=== PATIENT | male | born 1935 | race Caucasian/White ===

== ENCOUNTER 2016-09-02 18:29 | Emergency (ER) | payer MEDICARE, BC ==
[2016-09-02 18:29] VITALS: BMI 197684.9
[2016-09-02 18:43] VITALS: PULSE 76; TEMP 98
[2016-09-02] MEDS ORDERED: Oxycodone/Acetaminophen 5/325 mg Tab PO STA (19:35)
--- NOTE | 2016-09-02 21:34 | ED PDOC ---
Arrival/HPI - General Chief Complaint: Trauma Time Seen by Provider: 09/02/16 19:32 Historian: Patient - History of Present Illness Narrative History of Present Illness (Text): 09/02/16 19:45 Jose Arellano is an 81 year old male, whose past medical history includes hemodialysis, who presents to the emergency department complaining of left shoulder, left arm, and left rib cage pain after a mechanical fall at home two days ago. Patient states that he tripped over something on the floor and landed onto his left side on the edge of the bed. Patient's son is at bedside who confirms story and notes that patient usually ambulates with a walker. Patient has no other complaint at this time. PMD: Dr. Wood Time/Duration: < week (2 days ago) Symptom Onset: Gradual Symptom Course: Unchanged Severity Level: Mild Activities at Onset: Light Context: Home Past Medical History - Provider Review Nursing Documentation Reviewed: Yes - Cardiac Hx Hypertension: Yes - Renal Hx Dialysis: Yes () - Psychiatric Hx Substance Use: No Family/Social History - Physician Review Nursing Documentation Reviewed: Yes Family/Social History: No Known Family HX Smoking Status: Unknown If Ever Smoked Hx Alcohol Use: No Hx Substance Use: No Allergies/Home Meds Allergies/Adverse Reactions: Allergies No Known Allergies Allergy (Verified 09/02/16 18:34) Home Medications: Home Meds Medication Instructions Recorded Confirmed Atorvastatin [Lipitor] 40 mg PO DAILY 09/02/16 09/02/16 Calcium Acetate [Phoslo] 667 mg PO TID 09/02/16 09/02/16 Carvedilol [Coreg] 25 mg PO DAILY 09/02/16 09/02/16 Clopidogrel [Plavix] 75 mg PO DAILY 09/02/16 09/02/16 Pantoprazole [Protonix] 40 mg PO DAILY 09/02/16 09/02/16 Vitamin B Complex/Vit C/Folic 1 tab PO DAILY 09/02/16 09/02/16 [Nephro-Christiano] hydrALAZINE [hydralazine 50 mg PO DAILY 09/02/16 09/02/16 Hydrochloride] Physical Exam - Physical Exam Narrative Physical Exam (Text): - Review of Systems Constitutional: Normal. absent: Fatigue, Weight Change, Fevers Eyes: Normal ENT: Normal Respiratory: Normal absent: SOB, Cough, Sputum Cardiovascular: Left rib cage pain. absent: Palpitations, Syncope Gastrointestinal: Normal absent: Abdominal pain, Diarrhea, Nausea, Vomiting Genitourinary: Normal. absent: Dysuria, Frequency, Hematuria Musculoskeletal: Left shoulder and Left arm pain. absent: Arthralgias, Back Pain , Neck Pain Skin: Normal Neurological: Normal absent: Focal Weakness Endocrine: Normal Hemo/Lymphatic: Normal Psychiatric: Normal - Physical exam Patient appears age appropriate, speaking full sentences without difficulty - Systems Exam Head: Present: Atraumatic, Normocephalic Pupils: Present: PERRL Extraocular Muscles: Present: EOMI Conjunctiva: Present: Normal Mouth: Present: Moist Mucous Membranes Neck: Present: Normal Range of Motion. No: MIDLINE TENDERNESS, Paraspinal Tenderness Respiratory/Chest: Rib point tenderness on left. Present: Clear to Auscultation , Good Air Exchange. No: Respiratory Distress, Accessory Muscle Use, Tachypnic Cardiovascular: Present: Regular Rate and Rhythm, Normal S1, S2, Peripheral Pulses Present. No: Murmurs Abdomen: Present: Normal Bowel Sounds, No: Tenderness, Peritoneal Signs, Rebound, Guarding, Distention Back: Present: Normal Inspection. No: Midline Tenderness, Paraspinal Tenderness Upper Extremity: Left clavicle non tender to palpation. Left shoulder with tenderness to palpation over superior portion with no visual or palpable deformity. Proximal humerus with no visible palpable deformity. Left elbow, wrist, and hand unremarkable. Distal neurovascular fully intact. Lower Extremity: Present: Normal Inspection. No: Edema Neurological: Present: GCS=15, Speech Normal, cranial nerves II through XII fully intact with no cerebellar abnormality, neuro-sensory fully intact. No focal neurological deficits. Skin: Present: Warm, Dry, Normal Color. No: Rashes Lymphatic: Present: OX3, NI, NC Psychiatric: Present: Alert, Oriented x 3, Normal Insight, Normal Concentration Head atraumatic. No nasal bone deformity or tenderness, no facial or jaw pain/ swelling. No neck midline tenderness, thoracic and lumbar spine with no midline tenderness. Pt moving b/l upper and lower extremities without difficulty, 5/5 strength, with full active and passive ROM (Except for left upper extremity). Distal neurovasc fully intact. Abd soft/nt/ng, no hematomas, no peritoneal signs. Neg. pelvic rock. Except for left upper extremity. Vital Signs Reviewed: Yes Vital Signs Temp Pulse Resp BP Pulse Ox 09/02/16 18:42 98.0 F 76 18 123/75 97 Temperature: Afebrile Blood Pressure: Normal Pulse: Regular Respiratory Rate: Normal Appearance: Positive for: Well-Appearing, Non-Toxic, Comfortable Pain Distress: None Mental Status: Positive for: Alert and Oriented X 3 Medical Decision Making ED Course and Treatment: 09/02/16 19:35 Impression: 81 year old male complaining of left shoulder, left arm, and left rib cage pain after a mechanical fall at home two days ago. Differential Diagnosis included but are not limited to: Sprain vs. Strain vs. Fracture Plan: -- Left Clavicle X-ray -- Left Elbow X-ray -- Left Humerus X-ray -- Left Shoulder X-ray -- Left Wrist X-ray -- Percocet -- Reassess and disposition Progress Notes: 09/02/16 22:27 Patient's x-ray showed no acute fracture or dislocations. Interpreted by me. No acute findings on CAT scan of the chest and brain, as per [facility] 09/02/16 23:08 Patient currently no distress, patient is able to ambulate with assistance of his son. Patient's son states that he feels comfortable taking him home with outpatient follow-up. Sling applied. Distal neurovascular intact on reevaluation. had an extensive d/w pt that although xrays are negative for any acute bony abnormality, it is still very important to fu with pmd and ortho specialist for further w/u and testing such as MRI to r/o any ligamentous/tendenous/meniscal injury. Pt verbalized full understanding of above discussion. Pt states he understands to return to the ER right away for new or worsening symptoms or for inability to f/u with PMD or specialist as instructed. Patient states that he fully agrees with and understands discharge instructions. States that he agrees with the plan and disposition. Verbalized and repeated discharge instructions and plan. I have given the patient opportunity to ask any additional questions. - RAD Interpretation Narrative RAD Interpretations (Text): 09/02/16 22:29 CT Scan CHEST W/O CONTRAST Exam Date: 09/02/16 This imaging exam was performed at [facility] EXAM: CT Chest Without Intravenous Contrast CLINICAL HISTORY: 81 years old, male; Injury or trauma; Fall; Initial encounter; Sprain or strain; Injury date: 09/02/2016 TECHNIQUE: Axial computed tomography images of the chest without intravenous contrast. This CT exam was performed using one or more of the following dose reduction techniques: automated exposure control, adjustment of the mA and/or kV according to patient size, and/or use of iterative reconstruction technique. Coronal reformatted images were created and reviewed. EXAM DATE/TIME: 09/02/2016 7:34 PM COMPARISON: There are no prior studies for comparison. FINDINGS: Artifacts: Motion artifact degrades image quality. Lungs and Pleural space: Trachea and main bronchi are patent. There is minimal scarring at the lung apices.There is no pneumothorax. There is no focal consolidation or pulmonary contusion. There are no effusions. Mediastinum: There are postsurgical changes in the mediastinum with surgical clips. There are no pathologically enlarged mediastinal nodes.Regla are not optimally evaluated without contrast material. Esophagus is unremarkable. Heart and Vasculature: Heart size is normal. There is no pericardial effusion. There are coronary calcifications. There is no aortic aneurysm.There are vascular calcifications.Pulmonary vessels are unremarkable. Thyroid: Thyroid is not optimally demonstrated. There may be a left thyroid nodule. Bones/joints: Bony structures are osteopenic.There are degenerative changes in the osseus structures.There are postsurgical changes of median sternotomy. No acute displaced rib fractures are visualized. Soft tissues: unremarkable Upper abdomen: Gallbladder is distended over 10 cm in length. Pancreas is atrophic. Tubes, lines and devices: There is a right jugular catheter with the tip at the caval atrial junction. IMPRESSION: No acute intrathoracic injury, no fracture seen; prior bypass surgery Additional findings as described above. Dictated By: Alexa Doyle MD HEAD W/O CONTRAST Exam Date: 09/02/16 This imaging exam was performed at [facility] EXAM: CT Head Without Intravenous Contrast CLINICAL HISTORY: 81 years old, male; Injury or trauma; Fall; Initial encounter; Concussion / head injury; Without loss of consciousness; Injury date: 09/02/2016 TECHNIQUE: Axial computed tomography images of the head/brain without intravenous contrast. This CT exam was performed using one or more of the following dose reduction techniques: automated exposure control, adjustment of the mA and/or kV according to patient size, and/or use of iterative reconstruction technique. EXAM DATE/TIME: 09/02/2016 7:34 PM COMPARISON: There are no prior studies for comparison. FINDINGS: Brain: There is dilatation of sulci gyri and ventricles. There is no midline shift. There is decreased attenuation in periventricular white matter. There are lacunar infarcts in the basal ganglia, age indeterminate. There are no focal masses. There are no focal hemorrhages. Collins-white differentiation is visualized. Ventricles: See above Bones: Cranial vault is intact. Soft tissues: unremarkable Sinuses: There is no acute sinusitis. Ears and mastoids: Middle ears are unremarkable. Mastoid tips are incompletely pneumatized. There is sclerosis of the right mastoid tip. Orbits: Orbital contents are unremarkable. IMPRESSION: Atrophy and small vessel disease, age indeterminate lacunar infarcts in the basal ganglia; no bleed Dictated By: Alexa Doyle MD Radiology Orders: 09/02/16 19:34 CHEST W/O CONTRAST [CT] Stat HEAD W/O CONTRAST [CT] Stat CLAVICLE LEFT [RAD] Stat ELBOW LEFT 3 VIEWS ROUTINE [RAD] Stat HUMERUS LEFT [RAD] Stat SHOULDER LEFT [RAD] Stat WRIST, LEFT 3 VIEWS [RAD] Stat Whipper Beater: Radiologist - Medication Orders Current Medication Orders: Discontinued Medications Oxycodone/Acetaminophen (Percocet 5/325 Mg Tab) 1 tab PO STAT STA Stop: 09/02/16 19:36 Last Admin: 09/02/16 20:22 Dose: 1 tab - Scribe Statement The provider has reviewed the documentation as recorded by the Jackie Parnell Provider Scribe Attestation: All medical record entries made by the Scribe were at my direction and personally dictated by me. I have reviewed the chart and agree that the record accurately reflects my personal performance of the history, physical exam, medical decision making, and the department course for this patient. I have also personally directed, reviewed, and agree with the discharge instructions and disposition. Disposition/Present on Arrival - Present on Arrival Any Indicators Present on Arrival: No History of DVT/PE: No History of Uncontrolled Diabetes: No Urinary Catheter: No History of Decub. Ulcer: No History Surgical Site Infection Following: None - Disposition Have Diagnosis and Disposition been Completed?: Yes Diagnosis: Fall Disposition: HOME/ ROUTINE Disposition Time: 23:10 Patient Plan: Discharge Condition: GOOD Discharge Instructions (ExitCare): Fall Prevention (ED), Fall Prevention for Older Adults (ED) Additional Instructions: PLEASE RETURN TO THE EMERGENCY DEPARTMENT FOR NEW OR WORSENING SYMPTOMS. RETURN RIGHT AWAY IF YOU CANNOT FOLLOW UP WITH YOUR PRIMARY CARE DOCTOR, CLINIC, OR SPECIALIST IN 1-2 DAYS. Prescriptions: oxyCODONE/Acetaminophen [Percocet 5/325 mg Tab] 1 ea PO BID PRN #10 tab PRN Reason: Pain, Moderate (4-7) Referrals: Sanjeev Wood MD [Primary Care Provider] - Follow up with primary
--- NOTE | 2016-09-02 21:43 | CT ---
EXAM: CT Head Without Intravenous Contrast CLINICAL HISTORY: 81 years old, male; Injury or trauma; Fall; Initial encounter; Concussion / head injury; Without loss of consciousness; Injury date: 09/02/2016 TECHNIQUE: Axial computed tomography images of the head/brain without intravenous contrast. This CT exam was performed using one or more of the following dose reduction techniques: automated exposure control, adjustment of the mA and/or kV according to patient size, and/or use of iterative reconstruction technique. EXAM DATE/TIME: 09/02/2016 7:34 PM COMPARISON: There are no prior studies for comparison. FINDINGS: Brain: There is dilatation of sulci gyri and ventricles. There is no midline shift. There is decreased attenuation in periventricular white matter. There are lacunar infarcts in the basal ganglia, age indeterminate. There are no focal masses. There are no focal hemorrhages. Collins-white differentiation is visualized. Ventricles: See above Bones: Cranial vault is intact. Soft tissues: unremarkable Sinuses: There is no acute sinusitis. Ears and mastoids: Middle ears are unremarkable. Mastoid tips are incompletely pneumatized. There is sclerosis of the right mastoid tip. Orbits: Orbital contents are unremarkable. IMPRESSION: Atrophy and small vessel disease, age indeterminate lacunar infarcts in the basal ganglia; no bleed
--- NOTE | 2016-09-02 21:51 | CT ---
EXAM: CT Chest Without Intravenous Contrast CLINICAL HISTORY: 81 years old, male; Injury or trauma; Fall; Initial encounter; Sprain or strain; Injury date: 09/02/2016 TECHNIQUE: Axial computed tomography images of the chest without intravenous contrast. This CT exam was performed using one or more of the following dose reduction techniques: automated exposure control, adjustment of the mA and/or kV according to patient size, and/or use of iterative reconstruction technique. Coronal reformatted images were created and reviewed. EXAM DATE/TIME: 09/02/2016 7:34 PM COMPARISON: There are no prior studies for comparison. FINDINGS: Artifacts: Motion artifact degrades image quality. Lungs and Pleural space: Trachea and main bronchi are patent. There is minimal scarring at the lung apices.There is no pneumothorax. There is no focal consolidation or pulmonary contusion. There are no effusions. Mediastinum: There are postsurgical changes in the mediastinum with surgical clips. There are no pathologically enlarged mediastinal nodes.Regla are not optimally evaluated without contrast material. Esophagus is unremarkable. Heart and Vasculature: Heart size is normal. There is no pericardial effusion. There are coronary calcifications. There is no aortic aneurysm.There are vascular calcifications.Pulmonary vessels are unremarkable. Thyroid: Thyroid is not optimally demonstrated. There may be a left thyroid nodule. Bones/joints: Bony structures are osteopenic.There are degenerative changes in the osseus structures.There are postsurgical changes of median sternotomy. No acute displaced rib fractures are visualized. Soft tissues: unremarkable Upper abdomen: Gallbladder is distended over 10 cm in length. Pancreas is atrophic. Tubes, lines and devices: There is a right jugular catheter with the tip at the caval atrial junction. IMPRESSION: No acute intrathoracic injury, no fracture seen; prior bypass surgery Additional findings as described above.
[2016-09-02 23:51] VITALS: BP 124/80; RESP 16; O2SAT 98
--- NOTE | 2016-09-03 07:19 | RAD ---
PROCEDURE: Radiographs of the left elbow. HISTORY: fall COMPARISON: No prior. FINDINGS: BONES: No fracture. Posterior olecranon spur -triceps insertional enthesophyte. Minimal anterior coronoid spurring. Tug osseous hypertrophic changes lateral humeral epicondyle Mid shaft radial benign-appearing cortical hypertrophy i -possibly due to tug effects or old trauma JOINTS: Mild osteoarthritis. SOFT TISSUES: Normal. JOINT EFFUSION: None. OTHER FINDINGS: None IMPRESSION: No fracture or dislocation. Spurs/mild osteoarthrosis
--- NOTE | 2016-09-03 07:21 | RAD ---
PROCEDURE: Radiographs of the left clavicle. HISTORY: fall COMPARISON: None. FINDINGS: LEFT CLAVICLE: No fracture or focal lesion. JOINTS: Left acromioclavicular and glenohumeral osteoarthrosis SOFT TISSUES: Grossly unremarkable. OTHER FINDINGS: Benign-appearing partly sclerotic focus projects over glenoid - bone island or benign enchondroma seen on end- are favored considerations. Partly visualized are sternal wires IMPRESSION: No fracture or dislocation. Arthrosis
--- NOTE | 2016-09-03 07:22 | RAD ---
PROCEDURE: Radiographs of the left humerus. HISTORY: fall COMPARISON: None. FINDINGS: BONES: No fracture or focal lesion. SOFT TISSUES: Normal. OTHER FINDINGS: Left acromioclavicular and left glenohumeral and left elbow joint joint osteoarthrosis IMPRESSION: Arthrosis. No fracture or dislocation
--- NOTE | 2016-09-03 07:25 | RAD ---
PROCEDURE: Radiographs of the Left Shoulder HISTORY: fall COMPARISON: No prior. FINDINGS: BONES: No fracture or dislocation. The partly sclerotic focus over the glenoid can be seen with developmental variants, partly sclerotic bone island and a benign enchondroma seen on end. JOINTS: Glenohumeral and acromioclavicular SOFT TISSUES: Normal. OTHER FINDINGS: None. IMPRESSION: Arthrosis. No fracture or dislocation
--- NOTE | 2016-09-03 07:27 | RAD ---
PROCEDURE: Left Wrist Radiographs. HISTORY: fall COMPARISON: None. FINDINGS: BONES: . No fracture. JOINTS: Radial carpal mild carpal-first metacarpal, diffuse metacarpal phalangeal and proximal interphalangeal joint space (portions visualize) narrowing/arthritic changes are noted. No dislocations seen SOFT TISSUES: Radial sided carpal level atherosclerotic vascular calcifications OTHER FINDINGS: None. IMPRESSION: No fracture or dislocation. Arthrosis
== END 2016-09-02 23:15 | disposition home or self-care (01) ==
LOC: ED 18:29
DX: Z03.89 Encounter for observation for other suspected diseases and conditions ruled out (principal); W19.XXXA Unspecified fall, initial encounter; Y92.009 Unspecified place in unspecified non-institutional (private) residence as the place of occurrence of the external cause

== ENCOUNTER 2016-12-06 17:43 | Inpatient (IN) | payer MEDICARE, BC ==
[2016-12-06 18:09] VITALS: BMI 18.8
[2016-12-06] MEDS ORDERED: Vancomycin 1gm in NS 250ml 1 GM/250 ML BAG IVPB STA (18:10)
--- NOTE | 2016-12-06 18:13 | ED PDOC ---
Arrival/HPI <Dewey Gonzalez - Last Filed: 12/06/16 20:13> - General Historian: Patient - History of Present Illness Time/Duration: 24 hours Symptom Onset: Gradual Symptom Course: Worsening Context: Home <Zully Pelaez - Last Filed: 12/06/16 20:52> - General Time Seen by Provider: 12/06/16 17:53 - History of Present Illness Narrative History of Present Illness (Text): 12/06/16 18:09 81 year old male with past medical history of HTN, HLD, DM, ESRD on HD M,W,F, CAD s/p CABG and CVA presents for fevers and chills that began yesterday. Patient states that yesterday he developed chills. He underwent dialysis yesterday and was asked to repeat it today. Patient was sent to ED after dialysis session. Patient denies having any CP, abd pain, N/V/D/C, dysuria, LE pain or swelling. Patient occasionally urinates. Patient does c/o SOB but denies having any coughing. PMH: Dr. Wood Accounts Adjustable Clerk: Dr. Bustillo (Zully Pelaez) Past Medical History - Provider Review Nursing Documentation Reviewed: Yes - Travel History Have you recently traveled outside [place] w/in the past 3 mons?: No If Yes, travel location?: [place] - Infectious Disease Hx of Infectious Diseases: None - Cardiac Hx Hypertension: Yes - Renal Hx Dialysis: Yes () - Psychiatric Hx Substance Use: No - Surgical History Other/Comment: dialysis access - Anesthesia Hx Anesthesia: Yes Hx Anesthesia Reactions: No <Zully Pelaez - Last Filed: 12/06/16 20:52> Family/Social History - Physician Review Nursing Documentation Reviewed: Yes Family/Social History: Unknown Family HX Smoking Status: Unknown If Ever Smoked Hx Alcohol Use: No Hx Substance Use: No <Zully Pelaez - Last Filed: 12/06/16 20:52> Allergies/Home Meds <eDwey Gonzalez - Last Filed: 12/06/16 20:13> <Zully Pelaez - Last Filed: 12/06/16 20:52> Allergies/Adverse Reactions: Allergies No Known Allergies Allergy (Verified 09/02/16 18:34) Home Medications: Home Meds Medication Instructions Recorded Confirmed Atorvastatin [Lipitor] 40 mg PO DAILY 09/02/16 12/06/16 Calcium Acetate [Phoslo] 2 tab PO TID 09/02/16 12/06/16 Carvedilol [Coreg] 25 mg PO DAILY 09/02/16 12/06/16 Clopidogrel [Plavix] 75 mg PO DAILY 09/02/16 12/06/16 Pantoprazole [Protonix] 40 mg PO DAILY 09/02/16 12/06/16 Vitamin B Complex/Vit C/Folic 1 tab PO DAILY 09/02/16 12/06/16 [Nephro-Christiano] hydrALAZINE [hydralazine 50 mg PO DAILY 09/02/16 12/06/16 Hydrochloride] Fidaxomicin [Dificid] 200 mg PO BID 12/06/16 12/06/16 Review of Systems - Review of Systems Constitutional: Fevers Eyes: Normal. absent: Vision Changes, Photophobia ENT: Normal. absent: Sore Throat, Rhinorrhea, Sinus Congestion Respiratory: SOB. absent: Cough, Sputum, Wheezing Cardiovascular: absent: Chest Pain, Edema, Calf Pain, Syncope Gastrointestinal: Normal. absent: Abdominal Pain, Constipation, Diarrhea, Nausea, Vomiting Genitourinary Male: Normal. absent: Dysuria, Frequency, Hematuria Musculoskeletal: Normal. absent: Arthralgias, Back Pain, Neck Pain Skin: Normal. absent: Rash, Pruritis, Skin Lesions Neurological: absent: Headache, Dizziness Endocrine: Normal. absent: Diaphoresis, Polyuria Hemo/Lymphatic: Normal. absent: Adenopathy, Easy Bleeding Psychiatric: Normal. absent: Anxiety, Depression <Karim,Zully - Last Filed: 12/06/16 20:52> Physical Exam Vital Signs Reviewed: Yes Temperature: Febrile Blood Pressure: Hypertensive Pulse: Tachycardic Respiratory Rate: Tachypneic Appearance: Positive for: Ill-Appearing, Uncomfortable Pain Distress: None Mental Status: Positive for: Alert and Oriented X 3 Finger Stick Blood Glucose: 248 - Systems Exam Head: Present: Atraumatic, Normocephalic Extroacular Muscles: Present: EOMI Mouth: Present: Moist Mucous Membranes Respiratory/Chest: Present: Wheezes (diffusely). No: Respiratory Distress, Accessory Muscle Use, Rales, Rhonchi Abdomen: Present: Normal Bowel Sounds. No: Tenderness, Distention, Peritoneal Signs, Guarding Lower Extremity: Present: NORMAL PULSES. No: Edema, CALF TENDERNESS Neurological: Present: GCS=15, Speech Normal Skin: Present: Warm, Dry, Normal Color, Other (port site no erythema, non- tender ). No: Rashes Psychiatric: Present: Alert, Oriented x 3, Normal Insight <Zully Pelaez - Last Filed: 12/06/16 20:52> Vital Signs Temp Pulse Resp BP Pulse Ox 12/06/16 20:36 96 H 18 128/71 100 12/06/16 19:21 110 H 18 125/67 100 12/06/16 19:01 116 H 18 141/73 100 12/06/16 17:58 101.8 F H 138 H 18 173/103 H 97 Medical Decision Making <Dewey Gonzalez - Last Filed: 12/06/16 20:13> - Lab Interpretations I have reviewed the lab results: Yes - RAD Interpretation Sizing Sprayer: ED Physician - EKG Interpretation Interpreted by ED Physician: Yes Type: 12 lead EKG <Zully Pelaez - Last Filed: 12/06/16 20:52> ED Course and Treatment: 12/06/16 18:33 Patient seen and examined with medical clinic manager. On exam, patient is tachypneic , tachycardic, febrile. Oxygen saturations are 100%. He has no obvious skin erythema or lesions. No abdominal pain or chest pain. Some rhonchi noted on exam. Tylenol ordered. I suspect tachycardia secondary to fever, SIRS, likely sepsis. IV antibiotics ordered. Initial blood pressure stable. No chest pain currently. Labs pending. (Dewey Gonzalez) 12/06/16 18:17 81 year old male presents for fevers and chills Will check CBC, CMP, cardiac enzymes, blood and urine cultures, UA, CXR, EKG Patient will be given IV antibiotics and tylenol 12/06/16 20:22 Patient's heart rate and temperature has improved since administration of Tylenol. Will reach out to Dr. Singh for admission for observation . 12/06/16 20:50 Dr. Gonzalez spoke with Dr. Luis Lucas who accepts patient under hospitalists service. (Zully Pelaez) - Lab Interpretations Narrative Lab Interpretation (Text): 12/06/16 20:50 CBC unremarkable. CMP unremarkable Lactic acid normal [facility]) Lab Results: 12/06/16 18:20 12/06/16 18:20 Lab Results 12/06/16 18:38: pCO2 40, pO2 146.0 H, HCO3 25.4, ABG pH 7.41, ABG Total CO2 26.6 , ABG O2 Saturation 97.3, ABG Base Excess 0.7, ABG Potassium 3.0 L, Sodium 140.0 , Chloride 108.0 H, Glucose 205 H, Lactate 1.2, FiO2 32.0, Arterial Blood Potassium 3.0 L 12/06/16 18:30: Urine Color Yellow, Urine Appearance Clear, Urine pH 7.5, Ur Specific [place] 1.020, Urine Protein >=300 H, Urine Glucose (UA) >=1000, Urine Ketones Negative, Urine Blood Small H, Urine Nitrate Negative, Urine Bilirubin Negative, Urine Urobilinogen 0.2, Ur Leukocyte Esterase Negative, Urine RBC 1 - 3, Urine WBC 1 - 3, Ur Epithelial Cells 3 - 4, Amorphous Sediment Rare 12/06/16 18:20: Sodium 140, Chloride 99, Potassium 4.0, Carbon Dioxide 29, Anion Gap 16, BUN 17, Creatinine 3.0 H, Est GFR ( Amer) 24, Est GFR (Non- Af Amer) 20, Random Glucose 230 H, Calcium 8.3 L, Phosphorus 3.5, Magnesium 1.8 , Total Bilirubin 1.1, AST 35, ALT 119 H, Alkaline Phosphatase 142 H, Total Protein 7.7, Albumin 3.6, Globulin 4.1, Albumin/Globulin Ratio 0.9 L 12/06/16 18:20: pO2 28 L, VBG pH 7.31 L, VBG pCO2 60.0, VBG HCO3 30.2 H, VBG Total CO2 32.0 H, VBG O2 Sat (Calc) 58.1, VBG Base Excess 2.4 H, VBG Potassium 4.0, Sodium 139.0, Chloride 100.0, Glucose 237 H, Lactate 2.1, FiO2 21.0, Venous Blood Potassium 4.0 12/06/16 18:20: PT 11.6, INR 1.07, APTT 30.3 12/06/16 18:20: WBC 10.1, RBC 4.42, Hgb 10.1 L, Hct 31.6 L, MCV 71.5 L, MCH 22.9 L, MCHC 32.0, RDW 17.4 H, Plt Count 99 L, Gran % 94.6 H, Lymph % (Auto) 3.8 L, Mchen[place] % (Auto) 1.1, Eos % (Auto) 0.3 L, Baso % (Auto) 0.2, Gran # 9.56 H, Lymph # 0.4 L, [place] # 0.1, Eos # 0.0, Baso # 0.02, Neutrophils % (Manual) 93 H, Lymphocytes % (Manual) 5 L, Monocytes % (Manual) 2, Platelet Evaluation Low, Poikilocytosis (manual Slight, Anisocytosis (manual) Slight - RAD Interpretation Narrative RAD Interpretations (Text): 12/06/16 20:50 CXR small vascular congestion (Zully Pelaez) Radiology Orders: 12/06/16 18:02 CHEST PORTABLE [RAD] Stat - EKG Interpretation EKG Interpretation (Text): 12/06/16 20:25 Sinus tachycardia HR of 139, LVH with repolarization abnormality. Normal axis. (Zully Pelaez) - Medication Orders Current Medication Orders: Acetaminophen (Tylenol 325mg Tab) 975 mg PO ONCE PRN PRN Reason: Fever >100.4 F Stop: 12/06/16 23:59 Last Admin: 12/06/16 18:45 Dose: 975 mg Discontinued Medications Vancomycin HCl (Vancomycin 1gm) 1 gm in 250 mls @ 167 mls/hr IVPB STAT STA PRN Reason: Protocol Stop: 12/06/16 19:39 Last Admin: 12/06/16 18:45 Dose: 167 mls/hr Piperacillin Sod/Tazobactam Sod (Zosyn 4.5 Gm In Ns 100ml) 4.5 gm in 100 mls @ 200 mls/hr IVPB STAT STA PRN Reason: Protocol Stop: 12/06/16 19:02 - PA / GAS METER CHECKER / Resident Statement MD/DO has reviewed & agrees with the documentation as recorded. - Scribe Statement The provider has reviewed the documentation as recorded by the Scribe <Dewey Gonzalez - Last Filed: 12/06/16 20:13> <Zully Pelaez - Last Filed: 12/06/16 20:52> - Scribe Statement Melba Marquez Provider Scribe Attestation: All medical record entries made by the Scribe were at my direction and personally dictated by me. I have reviewed the chart and agree that the record accurately reflects my personal performance of the history, physical exam, medical decision making, and the department course for this patient. I have also personally directed, reviewed, and agree with the discharge instructions and disposition. (Dewey Gonzalez) Disposition/Present on Arrival <Dewey Gonzalez - Last Filed: 12/06/16 20:13> - Present on Arrival Any Indicators Present on Arrival: No History of DVT/PE: No History of Uncontrolled Diabetes: No Urinary Catheter: No History of Decub. Ulcer: No History Surgical Site Infection Following: None - Disposition Have Diagnosis and Disposition been Completed?: Yes Disposition Time: 20:51 Patient Plan: Observation <Zully Pelaez - Last Filed: 12/06/16 20:52> - Disposition Diagnosis: Fever, Rigors Disposition: HOSPITALIZED Patient Problems: Current Active Problems Problem Status Onset Fever Acute Rigors Acute Condition: STABLE Referrals: Neel Patel MD [Primary Care Provider] - Follow up with primary
[2016-12-06] MEDS ORDERED: Piperacill/Tazo 4.5gm in NS 4.5 GM/100 ML BAG IVPB STA (18:33)
[2016-12-06 18:39] LABS: VENOUS BLOOD GAS BASE EXCESS 2.4 mmol/L (0.0-2.0); VENOUS BLOOD PH 7.31 (7.32-7.43)
[2016-12-06 18:41] LABS: ARTERIAL BLOOD GAS HCO3 25.4 mmol/L (21-28); ARTERIAL BLOOD GAS PH 7.41 (7.35-7.45)
[2016-12-06 18:48] LABS: ALB/GLOB RATIO 0.9 (1.1-1.8); BILIRUBIN,TOTAL 1.1 mg/dL (0.2-1.3); CALCIUM 8.3 mg/dL (8.4-10.5); MAGNESIUM 1.8 mg/dL (1.7-2.2); PHOSPHOROUS 3.5 mg/dL (2.5-4.5); TOTAL PROTEIN 7.7 g/dL (5.8-8.3)
[2016-12-06 19:28] LABS: BASO # 0.02 K/mm3 (0.0-2.0); BASO % 0.2 % (0.0-3.0); EOS % 0.3 % (1.5-5.0); GRAN # 9.56 (1.4-6.5); GRAN % 94.6 % (50.0-68.0); HEMATOCRIT 31.6 % (42.0-52.0); LYMPH # 0.4 (1.2-3.4); LYMPH % 3.8 % (22.0-35.0); MEAN CELL VOLUME 71.5 fl (80.0-105.0); MEAN CORPUSCULAR HEMOGLOBIN 22.9 pg (25.0-35.0); MONO # 0.1 (0.1-0.6); MONO % 1.1 % (1.0-6.0); RED CELL DISTRIBUTION WIDTH 17.4 % (11.5-14.5); WHITE BLOOD COUNT 10.1 10^3/ul (4.5-11.0)
[2016-12-06 19:29] LABS: PH,URINE 7.5 (4.7-8.0); URINE BILIRUBIN NEGATIVE (NEGATIVE); URINE BLOOD SMALL (NEGATIVE); URINE GLUCOSE (UA) >=1000 mg/dL (NEGATIVE); URINE KETONE NEGATIVE (NEGATIVE); URINE LEUKOCYTE ESTERASE NEGATIVE Leu/uL (NEGATIVE); URINE PROTEIN >=300 mg/dL (<30 mg/dL); URINE UROBILINOGEN 0.2 E.U./dL (<1 E.U./dL)
[2016-12-06 19:35] LABS: URINE APPEARANCE CLEAR (CLEAR); URINE COLOR YELLOW (YELLOW)
[2016-12-06 20:03] LABS: PLATELET COUNT 99 10^3/uL (120.0-450.0)
[2016-12-06 20:08] LABS: ANISOCYTOSIS SLIGHT; NEUTROPHIL 93 % (50.0-70.0); PLATELET ESTIMATE LOW (NORMAL); POIKILOCYTOSIS SLIGHT
[2016-12-06 20:15] LABS: INR 1.07 (0.93-1.08); PARTIAL THROMBOPLASTIN TIME 30.3 Seconds (23.7-30.8)
[2016-12-06 20:27] LABS: URINE AMORPHOUS SEDIMENT RARE
[2016-12-06 22:01] LABS: VENOUS BLOOD GAS BASE EXCESS 4.3 mmol/L (0.0-2.0); VENOUS BLOOD PH 7.38 (7.32-7.43)
[2016-12-07] MEDS: Piperacillin/Tazobact 3.375 gm 100 ML IVPB SCH ×2 (03:00→09:46)
[2016-12-07] MEDS: FIDAXOMICIN 200 MG PO SCH ×2 (09:44→19:44)
[2016-12-07] MEDS: Multivitamin Vitamin B Complex (Nephro-Vite) Tab PO SCH (09:45)
[2016-12-07] MEDS: Pantoprazole 40 mg EC Tab PO SCH (09:46)
--- NOTE | 2016-12-07 10:25 | RAD ---
HISTORY: Sepsis Patient COMPARISON: No prior. FINDINGS: LUNGS: Patchy opacity at medial right lung base. Possible early infiltrate. Followup advised. No other abnormal opacity elsewhere. PLEURA: No significant pleural effusion identified, no pneumothorax apparent. CARDIOVASCULAR: Status post CABG. Normal heart size. No congestive change. Right tunneled central venous dialysis catheter. OSSEOUS STRUCTURES: No significant abnormalities. VISUALIZED UPPER ABDOMEN: Normal. OTHER FINDINGS: None. IMPRESSION: Patchy opacity at medial right base. Followup to exclude developing pneumonia.
--- NOTE | 2016-12-07 10:57 | CARD ---
APPROVED REPORT EKG Measurement Heart [id number] <Conclusion> Sinus tachycardia with fusion complexes Possible Left atrial enlargement Left ventricular hypertrophy with repolarization abnormality ST T changes infero-lat suggestive of ischemia. Abnormal ECG
[2016-12-07] MEDS ORDERED: Vancomycin 500mg in NS 500 MG/100 ML BAG IVPB STA (11:06)
--- NOTE | 2016-12-07 14:19 | CP.PCM.CON ---
History of Present Illness - History of Present Illness History of Present Illness: RENAL CONSULT NOTE 81 year old male with past medical history of HTN, HLD, DM, ESRD on HD TTS, CAD s/p CABG and CVA is admitted with fever and chills on dialysis. his last hd was on thursday and was sent to er after that for evaluation. he has been in [facility] for 2 months and just returned recently. Review of Systems - Review of Systems All systems: reviewed and no additional remarkable complaints except Past Patient History - Infectious Disease Hx of Infectious Diseases: None - Past Social History Smoking Status: Never Smoked - CARDIAC Hx Hypertension: Yes - RENAL Hx Dialysis: Yes () - MUSCULOSKELETAL/RHEUMATOLOGICAL Hx Falls: Yes - PSYCHIATRIC Hx Substance Use: No - SURGICAL HISTORY Other/Comment: dialysis access - ANESTHESIA Hx Anesthesia: Yes Hx Anesthesia Reactions: No Meds Allergies/Adverse Reactions: Allergies Allergy/AdvReac Type Severity Reaction Status Date / Time No Known Allergies Allergy Verified 09/02/16 18:34 - Medications Medications: Current Medications Atorvastatin Calcium (Lipitor) 40 mg PO DAILY [facility] Last Admin: 12/07/16 09:44 Dose: 40 mg Calcium Acetate (Phoslo) 1,334 mg PO TID [facility] Last Admin: 12/07/16 09:45 Dose: 1,334 mg Carvedilol (Coreg) 25 mg PO DAILY [facility] Last Admin: 12/07/16 09:44 Dose: 25 mg Clopidogrel Bisulfate (Plavix) 75 mg PO DAILY [facility] Last Admin: 12/07/16 09:45 Dose: 75 mg Home Med (Home Med) 1 unit PO BID [facility] Last Admin: 12/07/16 09:44 Dose: Not Given Hydralazine HCl (Apresoline) 50 mg PO DAILY [facility] Last Admin: 12/07/16 09:43 Dose: 50 mg Meropenem 250 mg/ Sodium (Chloride) 100 mls @ 100 mls/hr IVPB Q12H [facility] PRN Reason: Protocol Stop: 12/16/16 10:01 Pantoprazole Sodium (Protonix Ec Tab) 40 mg PO DAILY [facility] Last Admin: 12/07/16 09:46 Dose: 40 mg Vitamin B Complex/Vit C/Folic Acid (Nephro-Christiano) 1 tab PO DAILY [facility] Last Admin: 12/07/16 09:45 Dose: 1 tab Physical Exam - Constitutional Appears: Non-toxic, No Acute Distress - Head Exam Head Exam: NORMAL INSPECTION - Eye Exam Eye Exam: Normal appearance - ENT Exam ENT Exam: Mucous Membranes Moist - Neck Exam Neck exam: Positive for: Normal Inspection - Respiratory Exam Respiratory Exam: NORMAL BREATHING PATTERN Additional comments: right permacath + - Cardiovascular Exam Cardiovascular Exam: +S1, +S2 - GI/Abdominal Exam GI & Abdominal Exam: Soft - Extremities Exam Extremities exam: Positive for: normal inspection - Neurological Exam Neurological exam: Alert, Oriented x3 - Psychiatric Exam Psychiatric exam: Normal Mood Results - Vital Signs Recent Vital Signs: Last Vital Signs Temp 99.3 F 12/07/16 06:00 Pulse 90 12/07/16 09:43 Resp 20 12/07/16 06:00 BP 131/79 12/07/16 09:44 Pulse Ox 100 12/07/16 06:00 - Labs Result Diagrams: 12/06/16 18:20 12/06/16 18:20 Labs: Laboratory Results - last 24 hr 12/06/16 21:57 pO2 38 VBG pH 7.38 VBG pCO2 51.0 VBG HCO3 30.2 H VBG Total CO2 31.8 H VBG O2 Sat (Calc) 78.9 H VBG Base Excess 4.3 H VBG Potassium 3.6 Sodium 139.0 Chloride 103.0 Glucose 169 H Lactate 1.2 FiO2 21.0 Venous Blood Potassium 3.6 Assessment & Plan - Assessment and Plan (Free Text) Assessment: esrd/htn/cad/fever? rule out sepsis hd tts, last hd was on thursday continue per schedule lytes reviewed anemia stable continue binders fever work up per primary team, ? line infection. will await cultures results
[2016-12-08] MEDS: Pantoprazole 40 mg EC Tab PO SCH (12:46)
[2016-12-08] MEDS: Multivitamin Vitamin B Complex (Nephro-Vite) Tab PO SCH (12:46)
[2016-12-08] MEDS: FIDAXOMICIN 200 MG PO SCH ×2 (12:47→17:39)
--- NOTE | 2016-12-08 13:48 | CON ---
DATE: 12/07/2016 The patient seen in room 377, bed 1. CHIEF COMPLAINT: Fever of 101 x1 day. HISTORY OF PRESENT ILLNESS: This is an 81-year-old male with a history of hypertension, diabetes; end-stage renal disease, on hemodialysis, coronary artery disease, history of coronary bypass graft, history of cerebrovascular accident, and he developed fevers and chills. The patient admitted now and found to have fever of 101. Infectious Disease consultation requested. The patient denies any chest pain, shortness of breath, cough, hemoptysis. No abdominal pain, diarrhea, or constipation. No dysuria, frequency. No headaches. PAST MEDICAL HISTORY: Significant for hypertension, diabetes, end-stage renal disease on hemodialysis, coronary artery disease, cerebrovascular accident. PAST SURGICAL HISTORY: Significant for coronary bypass graft. ALLERGIES: THE PATIENT HAS NO KNOWN ALLERGIES. MEDICATIONS: At home include hydralazine, Plavix, Coreg, Lipitor. PHYSICAL EXAMINATION: GENERAL: He is in bed, in no acute distress. VITAL SIGNS: Temperature of 101.8, pulse of 100, respiratory rate of 20, blood pressure is 130/70. HEENT: Unremarkable. NECK: Supple. LUNGS: Decreased breath sounds bibasilar. HEART: Normal S1 and S2. ABDOMEN: Soft and nontender. No organomegaly. No rebound. LABORATORY DATA: Shows white count of 10,000, hemoglobin of 10, platelets of 99. BUN of 17, creatinine of 3.0. Urinalysis is noted. Chest x-ray reveals positive right base infiltrate. EKG shows an QTc of 444. ER note is reviewed, written by . ASSESSMENT AND PLAN: This is an 81-year-old male with hypertension, diabetes, end-stage renal disease on hemodialysis, coronary artery disease, cerebrovascular accident, presented with fever of 101, tachycardia, positive chest x-ray and low platelets. The patient with severe sepsis, right-sided healthcare associated pneumonia, must rule out bacteremia, was given the dose of vancomycin yesterday and Zosyn. Blood cultures, urine cultures were ordered. We will give another dose of vancomycin and meropenem and ordered procalcitonin and sputum and we will make further recommendations the initial results. We will follow closely with you. Paul Perez MD [facility] # [id number]
--- NOTE | 2016-12-08 14:08 | CP.PCM.PN ---
Subjective - Date & Time of Evaluation Date of Evaluation: 12/08/16 Time of Evaluation: 11:20 - Subjective Subjective: No fevers overnight, feeling better, less weak, no nausea, no SOB at rest. Objective - Vital Signs/Intake and Output Vital Signs (last 24 hours): Temp Pulse Resp BP Pulse Ox 97.8 F 81 20 126/80 100 12/08/16 08:58 12/08/16 12:49 12/08/16 08:58 12/08/16 12:49 12/08/16 08:58 Intake and Output: 12/08/16 12/08/16 06:59 18:59 Intake Total 360 Output Total 200 Balance 160 - Medications Medications: Current Medications Atorvastatin Calcium (Lipitor) 40 mg PO DAILY [facility] Last Admin: 12/08/16 12:45 Dose: 40 mg Calcium Acetate (Phoslo) 1,334 mg PO TID [facility] Last Admin: 12/08/16 12:46 Dose: 1,334 mg Carvedilol (Coreg) 25 mg PO DAILY [facility] Last Admin: 12/08/16 12:49 Dose: 25 mg Clopidogrel Bisulfate (Plavix) 75 mg PO DAILY [facility] Last Admin: 12/08/16 12:45 Dose: 75 mg Home Med (Home Med) 1 unit PO BID [facility] Last Admin: 12/08/16 12:47 Dose: Not Given Hydralazine HCl (Apresoline) 50 mg PO DAILY [facility] Last Admin: 12/08/16 12:46 Dose: 50 mg Meropenem 250 mg/ Sodium (Chloride) 100 mls @ 100 mls/hr IVPB Q12H [facility] PRN Reason: Protocol Stop: 12/16/16 10:01 Last Admin: 12/08/16 00:03 Dose: 100 mls/hr Doxycycline Hyclate 100 mg/ (Sodium Chloride) 100 mls @ 100 mls/hr IVPB Q12 [facility] PRN Reason: Protocol Stop: 12/15/16 10:01 Last Admin: 12/08/16 12:19 Dose: 100 mls/hr Insulin Detemir (Levemir) 10 unit [facility] Pantoprazole Sodium (Protonix Ec Tab) 40 mg PO DAILY [facility] Last Admin: 12/08/16 12:46 Dose: 40 mg Vitamin B Complex/Vit C/Folic Acid (Nephro-Christiano) 1 tab PO DAILY [facility] Last Admin: 12/08/16 12:46 Dose: 1 tab - Labs Labs: PT 11.6 Seconds (9.9-11.8) 12/06/16 18:20 INR 1.07 (0.93-1.08) 12/06/16 18:20 APTT 30.3 Seconds (23.7-30.8) 12/06/16 18:20 - Constitutional Appears: Non-toxic, No Acute Distress - Head Exam Head Exam: NORMAL INSPECTION - ENT Exam ENT Exam: Mucous Membranes Moist - Neck Exam Neck Exam: absent: Lymphadenopathy, Meningismus - Respiratory Exam Respiratory Exam: Decreased Breath Sounds Additional comments: right anterior chest wall HD catheter site intact - Cardiovascular Exam Cardiovascular Exam: +S1, +S2 - GI/Abdominal Exam GI & Abdominal Exam: Soft. absent: Tenderness Assessment and Plan - Assessment and Plan (Free Text) Plan: Assessment Severe sepsis due to right sided healthcare-associated pneumonia, slowly improving clinically HTN dyslipidemia DM ESRD on HD CAD S/P CABG CVA Plan Continue intermittent Vanco IV, Merrem (Day 2) and will add Doxycycline pending final blood cx results (negative x 1 day) will monitor clinically
--- NOTE | 2016-12-08 14:27 | CP.PCM.PN ---
Subjective - Date & Time of Evaluation Date of Evaluation: 12/08/16 Time of Evaluation: 14:20 - Subjective Subjective: Follow up Nephrology Consultation Note Assessment: Stable RLL pneumonia Diabetic chronic Kidney Disease (E11.22) Hypertensive Chronic Kidney Disease (I12.0) End stage renal disease (N18.6) dependence on hemodialysis (Z99.2) (TTS) via permacath Anemia (D64.9), Hyperphosphatemia (E83.39), Secondary Hyperparathyroidism (E21.1 ), HTN (I12.0) Plan: No acute need for dialysis today. Will plan for dialysis tomorrow. Continue with Nephrovite 1 tab/day. PRBC as needed for anemia. On MARLENE as aransep 25 mcg weekly, last Hb 10.1 Continue with phoslo, last phos level 3.5 Continue with hectorol 1 mcg with dialysis. Last PTH level 384. BP control with meds as ordered. Patient not on RAAS sue. He is known to have labile BP which can drop precipitously during HD Glycemic control, Dialysis consistent diet Further work up/management as per primary team Dose meds/antibiotics for ESRD status. Avoid fleets enema/magnesium based laxatives. speech/swallow eval. appreciate ID input Thanks for allowing me to participate in care of your patient. Will follow patient with you. Please call if any Qs. d/w primary team Dr Robert Prieto Office: [phone] Subjective: Noted events overnight. Patients feels better. Denies chest pain, palpitation, shortness of breath, leg swelling. later developed persistent cough after taking meds Physical Examination: General Appearance: Comfortable, in no acute respiratory distress, co- operative. frail appearing Vitals reviewed and noted as below Lungs: poor respiratory rate/effort. Breath sounds diminished at bases Heart: Normal rate. s1s2 normal. No rub or gallop. Extremities: no edema. hyperpigmented skin in legs Neurological: Patient is alert, awake and oriented to person, place and time. No focal deficit. Strength bilateral appropriate and equal Skin: Warm and dry. Normal turgor. No rash. Palpitation: Normal elasticity for age Abdomen: Abdomen is soft. Bowel sounds +. There is no abdominal tenderness, no guarding/rigidity or organomegaly : kidney or bladder not palpable Access: permacath Labs/imaging reviewed. Past medical history, past surgical history, family history, social history, allergy reviewed work up CXR: RLL infiltrate blood cx neg Objective - Vital Signs/Intake and Output Vital Signs (last 24 hours): Temp Pulse Resp BP Pulse Ox 97.8 F 81 20 126/80 100 12/08/16 08:58 12/08/16 12:49 12/08/16 08:58 12/08/16 12:49 12/08/16 08:58 Intake and Output: 12/08/16 12/08/16 06:59 18:59 Intake Total 360 Output Total 200 Balance 160 - Medications Medications: Current Medications Atorvastatin Calcium (Lipitor) 40 mg PO DAILY [facility] Last Admin: 12/08/16 12:45 Dose: 40 mg Calcium Acetate (Phoslo) 1,334 mg PO TID [facility] Last Admin: 12/08/16 12:46 Dose: 1,334 mg Carvedilol (Coreg) 25 mg PO DAILY [facility] Last Admin: 12/08/16 12:49 Dose: 25 mg Clopidogrel Bisulfate (Plavix) 75 mg PO DAILY [facility] Last Admin: 12/08/16 12:45 Dose: 75 mg Home Med (Home Med) 1 unit PO BID [facility] Last Admin: 12/08/16 12:47 Dose: Not Given Hydralazine HCl (Apresoline) 50 mg PO DAILY [facility] Last Admin: 12/08/16 12:46 Dose: 50 mg Meropenem 250 mg/ Sodium (Chloride) 100 mls @ 100 mls/hr IVPB Q12H [facility] PRN Reason: Protocol Stop: 12/16/16 10:01 Last Admin: 12/08/16 00:03 Dose: 100 mls/hr Doxycycline Hyclate 100 mg/ (Sodium Chloride) 100 mls @ 100 mls/hr IVPB Q12 [facility] PRN Reason: Protocol Stop: 12/15/16 10:01 Last Admin: 12/08/16 12:19 Dose: 100 mls/hr Insulin Detemir (Levemir) 10 unit SC [facility] Pantoprazole Sodium (Protonix Ec Tab) 40 mg PO DAILY [facility] Last Admin: 12/08/16 12:46 Dose: 40 mg Vitamin B Complex/Vit C/Folic Acid (Nephro-Christiano) 1 tab PO DAILY [facility] Last Admin: 12/08/16 12:46 Dose: 1 tab - Labs Labs: PT 11.6 Seconds (9.9-11.8) 12/06/16 18:20 INR 1.07 (0.93-1.08) 12/06/16 18:20 APTT 30.3 Seconds (23.7-30.8) 12/06/16 18:20
--- NOTE | 2016-12-08 21:35 | HP ---
DATE: 12/07/2016 The patient is an 81-year-old male. The patient was seen and examined in his room on 12/07/2016. CHIEF COMPLAINT: Fever and chills. HISTORY OF PRESENT ILLNESS: Mr. Eileen Garcia is an 81-year-old male with past medical history of hypertension, hypercholesterolemia, diabetes mellitus, end-stage renal disease on hemodialysis 3 times a week, coronary artery disease, status post CABG, and CVA, came to the emergency room with fever and chills. The patient went for dialysis and was told to repeat dialysis next day. The patient was sent to ED after dialysis session because of fever. Denies chest pain, abdominal pain, nausea, vomiting, dysuria or swelling of the leg. He is dialysis dependent. Denies shortness of breath, but denies also having coughing or chest pain. PAST MEDICAL HISTORY: Hypertension, renal insufficiency on hemodialysis. FAMILY HISTORY: Father and mother noncontributory. HABITS: No smoking. No drugs. No ethanol. ALLERGIES: THE PATIENT IS NOT ALLERGIC TO ANY MEDICATIONS. HOME MEDICATIONS: Lipitor, PhosLo, Coreg, Plavix, Protonix, hydralazine. Home medications are reviewed by me. REVIEW OF SYSTEMS: The patient seen and examined on the bedside, looking comfortable. No nausea, vomiting, or diarrhea. No hematuria or hematochezia. No headache. No dizziness. PHYSICAL EXAMINATION: VITAL SIGNS: Temperature 99.3, pulse 90, blood pressure 131/79, respiratory rate 20. HEENT: Head normocephalic and atraumatic. Eyes: PERRLA. Extraocular muscles intact. Conjunctivae clear. Nose patent. NECK: Supple. No carotid bruits. No JVD. No thyromegaly. CHEST: Bilaterally symmetrical. HEART: S1 and S2 positive. LUNGS: Clear to auscultation. ABDOMEN: Soft. Bowel sounds are present. No organomegaly. EXTREMITIES: No edema. No cyanosis. NEUROLOGIC: The patient is awake and alert. Moving all 4 extremities. No focal deficit. LABORATORY DATA: White blood cells 10.1, hemoglobin 10.1, hematocrit 31.6 and platelets 99. Sodium 140, potassium 4.0, BUN 17, creatinine 3.0, glucose 230, calcium 8.3, ALT 119, alkaline phosphatase 142. Prolactin 22.26. ASSESSMENT AND PLAN: Mr. Eileen Garcia 81 years old with anemia, thrombocytopenia, renal insufficiency on hemodialysis, uncontrolled diabetes mellitus, hypocalcemia, abnormal liver function test, proteinuria, hematuria, came with fever, history of hypertension, hypercholesterolemia, coronary artery disease, status post coronary artery bypass graft and cerebrovascular accident. We admitted the patient, got consent with Dr. Neel Patel, the patient's candy starch mold printer and Dr. Paul Perez, Infectious Disease. Antibiotic started, culture done, awaiting for the culture. The patient got a dose of vancomycin in the ER. We will continue Protonix, Plavix, and meropenem; started by Dr. Perez. Lipitor for hypercholesterolemia, Coreg and hydralazine. We will follow up. Karla Singh MD DELILAH
[2016-12-08] MEDS: Insulin Detemir 100 units/ml Vial (Levemir) SC SCH (22:11)
--- NOTE | 2016-12-09 00:49 | PN ---
DATE: 12/08/2016 SUBJECTIVE: The patient was examined on 12/08/2016. No fever. Looks comfortable. No nausea, no vomiting, or diarrhea. No hematuria or hematochezia. No chest pain. No shortness of breath. No constipation. PHYSICAL EXAMINATION: VITAL SIGNS: Temperature 97.8, pulse 61, respiration 20, blood pressure 123/80, pulse oximetry is 100%. HEENT: Head is normocephalic, atraumatic. Eyes, PERRLA. Extraocular muscles are intact. Conjunctivae are clear. Nose is patent. Mucous membrane is moist. NECK: Supple. No carotid bruits. No JVD or thyromegaly.. CHEST: Bilateral symmetrical. HEART: S1 and S2 positive. LUNGS: Clear to auscultation. ABDOMEN: Soft. Bowel sounds positive. No organomegaly. EXTREMITIES: No edema and no cyanosis. NEUROLOGICAL: The patient is awake and alert. Moving all 4 extremities. No focal deficit. MEDICATIONS: PhosLo, Coreg, Plavix, hydralazine, meropenem, doxycycline, Levemir, Protonix, vitamins. LABORATORY DATA: I do not have any recent labs, but I reviewed old labs. ASSESSMENT AND PLAN: Mr. Jose Arellano is 81 years old male with severe sepsis due to healthcare associated pneumonia, slowly improving, clinically getting better, hypertension, hypercholesterolemia, diabetes mellitus, end-stage renal disease on hemodialysis three times a week, coronary artery disease, coronary artery bypass surgery, cerebrovascular accident. Continue intermittent vancomycin, IV Merrem day two and we will add doxycycline, pending on final blood culture results as per ID. Seen by Dr. Robert Prieto, analysis director, right lower lobe pneumonia, diabetic chronic kidney disease, hyperphosphatemia secondary to hyperthyroidism. He will go for dialysis tomorrow. Continue Nephro vitamins. Getting Aranesp 25 mcg weekly. Last hemoglobin was 10.1. GI and DVT prophylaxis. Repeat labs. We will follow. Karla Singh MD
[2016-12-09] MEDS ORDERED: Doxercalciferol 4 mcg/2 ml Inj IVP ONE (06:00)
[2016-12-09 06:47] LABS: ALB/GLOB RATIO 0.8 (1.1-1.8); BILIRUBIN,TOTAL 0.5 mg/dL (0.2-1.3); CALCIUM 8.3 mg/dL (8.4-10.5); MAGNESIUM 2.1 mg/dL (1.7-2.2); PHOSPHOROUS 4.7 mg/dL (2.5-4.5); TOTAL PROTEIN 6.8 g/dL (5.8-8.3)
[2016-12-09 06:51] LABS: BASO # 0.03 K/mm3 (0.0-2.0); BASO % 0.5 % (0.0-3.0); EOS # 0.2 (0.0-0.7); EOS % 3.1 % (1.5-5.0); GRAN # 4.12 (1.4-6.5); HEMATOCRIT 28.9 % (42.0-52.0); LYMPH # 1.2 (1.2-3.4); LYMPH % 20.3 % (22.0-35.0); MEAN CELL VOLUME 71.2 fl (80.0-105.0); MEAN CORPUSCULAR HEMOGLOBIN 22.2 pg (25.0-35.0); MEAN CORPUSCULAR HGB CONC 31.1 g/dl (31.0-37.0); MONO # 0.5 (0.1-0.6); MONO % 8.1 % (1.0-6.0); PLATELET COUNT 107 10^3/uL (120.0-450.0); RED CELL DISTRIBUTION WIDTH 17.3 % (11.5-14.5); WHITE BLOOD COUNT 6.1 10^3/ul (4.5-11.0)
--- NOTE | 2016-12-09 10:31 | CP.PCM.PN ---
Subjective - Date & Time of Evaluation Date of Evaluation: 12/09/16 Time of Evaluation: 10:31 - Subjective Subjective: RENAL FOLLOW UP NOTE no events overnight hd today Objective - Vital Signs/Intake and Output Vital Signs (last 24 hours): Temp Pulse Resp BP Pulse Ox 97.5 F L 72 20 130/68 100 12/09/16 00:00 12/09/16 00:00 12/09/16 00:00 12/09/16 00:00 12/09/16 00:00 Intake and Output: 12/09/16 12/09/16 06:59 18:59 Intake Total 480 200 Output Total 0 Balance 480 200 - Medications Medications: Current Medications Atorvastatin Calcium (Lipitor) 40 mg PO DAILY [facility] Last Admin: 12/08/16 12:45 Dose: 40 mg Calcium Acetate (Phoslo) 1,334 mg PO TID [facility] Last Admin: 12/08/16 18:16 Dose: 1,334 mg Carvedilol (Coreg) 25 mg PO DAILY [facility] Last Admin: 12/08/16 12:49 Dose: 25 mg Clopidogrel Bisulfate (Plavix) 75 mg PO DAILY [facility] Last Admin: 12/08/16 12:45 Dose: 75 mg Home Med (Home Med) 1 unit PO BID [facility] Last Admin: 12/08/16 17:39 Dose: Not Given Hydralazine HCl (Apresoline) 50 mg PO DAILY [facility] Last Admin: 12/08/16 12:46 Dose: 50 mg Meropenem 250 mg/ Sodium (Chloride) 100 mls @ 100 mls/hr IVPB Q12H [facility] PRN Reason: Protocol Stop: 12/16/16 10:01 Last Admin: 12/09/16 00:24 Dose: 100 mls/hr Doxycycline Hyclate 100 mg/ (Sodium Chloride) 100 mls @ 100 mls/hr IVPB Q12 [facility] PRN Reason: Protocol Stop: 12/15/16 10:01 Last Admin: 12/08/16 22:10 Dose: 100 mls/hr Insulin Detemir (Levemir) 10 unit SC [facility] Last Admin: 12/08/16 22:11 Dose: 10 unit Pantoprazole Sodium (Protonix Ec Tab) 40 mg PO DAILY [facility] Last Admin: 12/08/16 12:46 Dose: 40 mg Vitamin B Complex/Vit C/Folic Acid (Nephro-Christiano) 1 tab PO DAILY [facility] Last Admin: 12/08/16 12:46 Dose: 1 tab - Labs Labs: 12/09/16 06:25 12/09/16 06:25 PT 11.6 Seconds (9.9-11.8) 12/06/16 18:20 INR 1.07 (0.93-1.08) 12/06/16 18:20 APTT 30.3 Seconds (23.7-30.8) 12/06/16 18:20 - Constitutional Appears: Non-toxic, No Acute Distress - Head Exam Head Exam: NORMAL INSPECTION - Eye Exam Eye Exam: Normal appearance - ENT Exam ENT Exam: Mucous Membranes Moist - Respiratory Exam Respiratory Exam: NORMAL BREATHING PATTERN - Cardiovascular Exam Cardiovascular Exam: +S1, +S2 - GI/Abdominal Exam GI & Abdominal Exam: Soft - Extremities Exam Extremities Exam: Normal Inspection - Neurological Exam Neurological Exam: Alert, Awake - Skin Skin Exam: Dry Assessment and Plan - Assessment and Plan (Free Text) Plan: pnemonia/ESRD/DM/HTN/anemia hd tts today per schedule lytes reviewed b pok abx per primary team anemia: epo with hd continue binders
[2016-12-09] MEDS: Multivitamin Vitamin B Complex (Nephro-Vite) Tab PO SCH (10:40)
[2016-12-09] MEDS: Pantoprazole 40 mg EC Tab PO SCH (10:41)
[2016-12-09] MEDS: FIDAXOMICIN 200 MG PO SCH ×2 (13:12→18:12)
--- NOTE | 2016-12-09 13:37 | CP.PCM.PN ---
Subjective - Date & Time of Evaluation Date of Evaluation: 12/09/16 Time of Evaluation: 10:45 - Subjective Subjective: Breathing better, no cough currently, able to eat breakfast, no fevers overnight , not in distress. Objective - Vital Signs/Intake and Output Vital Signs (last 24 hours): Temp Pulse Resp BP Pulse Ox 97.5 F L 72 20 130/68 100 12/09/16 00:00 12/09/16 00:00 12/09/16 00:00 12/09/16 00:00 12/09/16 00:00 Intake and Output: 12/09/16 12/09/16 06:59 18:59 Intake Total 480 200 Output Total 0 Balance 480 200 - Medications Medications: Current Medications Atorvastatin Calcium (Lipitor) 40 mg PO DAILY [facility] Last Admin: 12/08/16 12:45 Dose: 40 mg Calcium Acetate (Phoslo) 1,334 mg PO TID [facility] Last Admin: 12/08/16 18:16 Dose: 1,334 mg Carvedilol (Coreg) 25 mg PO DAILY [facility] Last Admin: 12/08/16 12:49 Dose: 25 mg Clopidogrel Bisulfate (Plavix) 75 mg PO DAILY [facility] Last Admin: 12/08/16 12:45 Dose: 75 mg Home Med (Home Med) 1 unit PO BID [facility] Last Admin: 12/08/16 17:39 Dose: Not Given Hydralazine HCl (Apresoline) 50 mg PO DAILY [facility] Last Admin: 12/08/16 12:46 Dose: 50 mg Meropenem 250 mg/ Sodium (Chloride) 100 mls @ 100 mls/hr IVPB Q12H [facility] PRN Reason: Protocol Stop: 12/16/16 10:01 Last Admin: 12/09/16 00:24 Dose: 100 mls/hr Doxycycline Hyclate 100 mg/ (Sodium Chloride) 100 mls @ 100 mls/hr IVPB Q12 [facility] PRN Reason: Protocol Stop: 12/15/16 10:01 Last Admin: 12/08/16 22:10 Dose: 100 mls/hr Insulin Detemir (Levemir) 10 unit SC HS [facility] Last Admin: 12/08/16 22:11 Dose: 10 unit Pantoprazole Sodium (Protonix Ec Tab) 40 mg PO DAILY [facility] Last Admin: 12/08/16 12:46 Dose: 40 mg Vitamin B Complex/Vit C/Folic Acid (Nephro-Christiano) 1 tab PO DAILY [facility] Last Admin: 12/08/16 12:46 Dose: 1 tab - Labs Labs: 12/09/16 06:25 12/09/16 06:25 PT 11.6 Seconds (9.9-11.8) 12/06/16 18:20 INR 1.07 (0.93-1.08) 12/06/16 18:20 APTT 30.3 Seconds (23.7-30.8) 12/06/16 18:20 - Constitutional Appears: Non-toxic, No Acute Distress - Head Exam Head Exam: NORMAL INSPECTION - ENT Exam ENT Exam: Mucous Membranes Moist - Neck Exam Neck Exam: absent: Meningismus - Respiratory Exam Respiratory Exam: Decreased Breath Sounds Additional comments: right anterior chest wall HD catheter in place - Cardiovascular Exam Cardiovascular Exam: +S1, +S2 - GI/Abdominal Exam GI & Abdominal Exam: Soft. absent: Tenderness Assessment and Plan - Assessment and Plan (Free Text) Plan: Assessment Severe sepsis due to right sided healthcare-associated pneumonia, slowly improving clinically HTN dyslipidemia DM ESRD on HD CAD S/P CABG CVA Plan Continue intermittent Vanco IV, Merrem (Day 3) and Doxycycline; blood cx are negative; sputum cx showing mixed organisms (will await final results) - target up to 7 days of antibiotics will continue to monitor clinically
[2016-12-09] MEDS: Insulin Detemir 100 units/ml Vial (Levemir) SC SCH (21:47)
--- NOTE | 2016-12-10 02:02 | CON ---
DATE: 12/07/2016 PULMONARY CONSULT REFERRING PHYSICIAN: Dr. Singh. REASON FOR CONSULT: Admitted with fever, chills and daytime sleepy and tired. HISTORY OF PRESENT ILLNESS: This is an 81-year-old gentleman with past medical history significant for diabetes; renal failure, dialysis dependent; hypertension; hyperlipidemia; coronary artery disease; history of coronary bypass surgery and history of stroke came in with fever and chills, admitted to have snoring, daytime sleepy and tired. No nausea, no vomiting and no diarrhea. PAST MEDICAL HISTORY: Renal failure, dialysis dependent; hypertension; coronary artery disease; history of coronary bypass surgery; diabetes and hyperlipidemia. FAMILY HISTORY: Not significant cardiopulmonary disease reported. SOCIAL HISTORY: Nonsmoker and nondrinker. ALLERGIES: NONE KNOWN. MEDICATIONS: He is on hydralazine 50 mg daily, Coreg 25 mg daily, doxycycline 100 mg twice a day, Levemir 10 units subQ at bedtime, Lipitor 40 mg daily, meropenem 250 mg q. 12 hours, Nephro-Christiano 1 tab daily, PhosLo, Plavix 75 mg daily, Protonix 40 mg daily. REVIEW OF SYSTEMS: No headache, no rhinitis. Has some cough, shortness of breath. Admitted to have snoring, daytime sleepy and tired. No nausea, no vomiting. No leg pain or leg swelling. PHYSICAL EXAMINATION GENERAL: Lying in the bed, in no acute distress. VITAL SIGNS: Temp is 98, heart rate 79, respiratory rate is 20, blood pressure 97/49, pulse ox 97% on room air. HEENT: Moist mucous membranes. Crowded airway. Mallampati score is 4. NECK: Supple. No JVD. LUNGS: Has a fair airflow with rhonchi. HEART: S1 and S2. ABDOMEN: Soft, nontender. No organomegaly. EXTREMITIES: There is no edema. NEUROLOGICAL: Awake and alert, just follows simple commands. LABORATORY DATA: Shows hemoglobin 9.7, hematocrit 28.9, WBC is 6.1, platelets are 107. Sodium 141, potassium 4.0, chloride 104, bicarbonate 24, BUN 44, creatinine 6.2, glucose 148, calcium 8.3, phosphorus 4.7, magnesium 2.1, AST 30, ALT 71, alk phos is 94, albumin is 3.0. Microbiology: Blood culture, urine culture and sputum culture, there is no growth. Chest x-ray done on admission, patchy opacity at medial right lung base, possible early infiltrate. IMPRESSION AND PLAN: Admitted with sepsis, probably pneumonia; renal failure, dialysis dependent; hypertension; hyperlipidemia; diabetes; coronary artery disease; history of coronary bypass surgery; history of stroke in the past. The patient is already on broad-spectrum antibiotics covering health care-associated pneumonia, this may be component of sleep apnea. Keep head elevated at 45 degrees. Repeat PA and lateral chest x-ray. Gastric and deep vein thrombosis prophylaxis. Thank you and we will follow with you. Trinidad Day MD
[2016-12-10 08:51] VITALS: RESP 20
--- NOTE | 2016-12-10 09:01 | CP.PCM.PN ---
Subjective - Date & Time of Evaluation Date of Evaluation: 12/10/16 Time of Evaluation: 08:57 - Subjective Subjective: RENAL PROGRESS NOTE seen and examined no complaints Objective - Vital Signs/Intake and Output Vital Signs (last 24 hours): Temp Pulse Resp BP Pulse Ox 98.2 F 102 H 20 137/69 99 12/10/16 07:30 12/10/16 07:30 12/10/16 07:30 12/10/16 07:30 12/10/16 07:30 Intake and Output: 12/10/16 12/10/16 06:59 18:59 Intake Total 180 Output Total 0 Balance 180 - Medications Medications: Current Medications Atorvastatin Calcium (Lipitor) 40 mg PO DAILY [facility] Last Admin: 12/09/16 10:40 Dose: 40 mg Calcium Acetate (Phoslo) 1,334 mg PO TID [facility] Last Admin: 12/09/16 17:38 Dose: 1,334 mg Carvedilol (Coreg) 25 mg PO DAILY [facility] Last Admin: 12/09/16 10:40 Dose: 25 mg Clopidogrel Bisulfate (Plavix) 75 mg PO DAILY [facility] Last Admin: 12/09/16 10:40 Dose: 75 mg Home Med (Home Med) 1 unit PO BID [facility] Last Admin: 12/09/16 18:12 Dose: Not Given Hydralazine HCl (Apresoline) 50 mg PO DAILY [facility] Last Admin: 12/09/16 10:41 Dose: 50 mg Meropenem 250 mg/ Sodium (Chloride) 100 mls @ 100 mls/hr IVPB Q12H [facility] PRN Reason: Protocol Stop: 12/16/16 10:01 Last Admin: 12/10/16 00:16 Dose: 100 mls/hr Doxycycline Hyclate 100 mg/ (Sodium Chloride) 100 mls @ 100 mls/hr IVPB Q12 [facility] PRN Reason: Protocol Stop: 12/15/16 10:01 Last Admin: 12/09/16 21:37 Dose: 100 mls/hr Insulin Detemir (Levemir) 10 unit SC HS [facility] Last Admin: 12/09/16 21:47 Dose: Not Given Pantoprazole Sodium (Protonix Ec Tab) 40 mg PO DAILY [facility] Last Admin: 12/09/16 10:41 Dose: 40 mg Vitamin B Complex/Vit C/Folic Acid (Nephro-Christiano) 1 tab PO DAILY [facility] Last Admin: 12/09/16 10:40 Dose: 1 tab - Labs Labs: 12/09/16 06:25 12/09/16 06:25 PT 11.6 Seconds (9.9-11.8) 12/06/16 18:20 INR 1.07 (0.93-1.08) 12/06/16 18:20 APTT 30.3 Seconds (23.7-30.8) 12/06/16 18:20 - Constitutional Appears: Non-toxic - Head Exam Head Exam: ATRAUMATIC - Eye Exam Eye Exam: Normal appearance - ENT Exam ENT Exam: Normal Exam - Neck Exam Neck Exam: Normal Inspection - Respiratory Exam Respiratory Exam: NORMAL BREATHING PATTERN - Cardiovascular Exam Cardiovascular Exam: REGULAR RHYTHM - GI/Abdominal Exam GI & Abdominal Exam: Normal Bowel Sounds - Extremities Exam Extremities Exam: Normal Inspection - Neurological Exam Neurological Exam: Alert, Oriented x3 - Psychiatric Exam Psychiatric exam: Normal Affect - Skin Skin Exam: Normal Color Assessment and Plan - Assessment and Plan (Free Text) Assessment: pnemonia/ESRD/DM/HTN/anemia/hyperphosphatemia HD tomorrow and continue TTS bp reasonably controlled abx per primary team anemia: aranbesp w/ HD tomorrow continue binders, phos within goal cont nephrocap
--- NOTE | 2016-12-10 09:51 | RAD ---
HISTORY: pneumonia COMPARISON: 12/06/2016 TECHNIQUE: Chest PA and lateral FINDINGS: LUNGS: No active pulmonary disease. PLEURA: Small bilateral pleural effusions CARDIOVASCULAR: Normal. OSSEOUS STRUCTURES: Sternal wires VISUALIZED UPPER ABDOMEN: Normal. OTHER FINDINGS: Right internal jugular dialysis catheter IMPRESSION: Small effusions layered posteriorly
[2016-12-10] MEDS: Pantoprazole 40 mg EC Tab PO SCH (10:07)
[2016-12-10] MEDS: Multivitamin Vitamin B Complex (Nephro-Vite) Tab PO SCH (10:07)
[2016-12-10] MEDS: FIDAXOMICIN 200 MG PO SCH (10:11)
--- NOTE | 2016-12-10 11:55 | PN ---
DATE: 12/09/2016 SUBJECTIVE: The patient was seen and examined on 12/09/2016. Looking comfortable. No nausea, vomiting or diarrhea. No hematuria or hematochezia. No headache. Has some cough and shortness of breath. Sleepy, arousable. No swelling of the leg. PHYSICAL EXAMINATION: VITAL SIGNS: Temperature 98.1, heart rate 79, respirations 20, blood pressure 100/40, pulse oximetry 97% on room air. HEENT: Head; normocephalic, atraumatic. Eyes, PERRLA. Extraocular muscles are intact. Conjunctivae are clear. Nose is patent. Mucous membranes moist. NECK: Supple. No carotid bruits. No thyromegaly. CHEST: Bilaterally symmetrical. HEART: S1 and S2 positive. LUNGS: Has fair air flow with rhonchi. ABDOMEN: Soft. No organomegaly. EXTREMITIES: No edema, no cyanosis. NEUROLOGIC: The patient is sleepy, arousable. Moving all 4 extremities. Follows simple commands. LABORATORY DATA: Hemoglobin 9.7, hematocrit 28.9, WBC is 6.1 and platelets are 107. Sodium 141, potassium 4.0, BUN 44 and creatinine 6.2. MEDICATIONS: Reviewed by me. ASSESSMENT AND PLAN: The patient came with sepsis; pneumonia; renal failure, on hemodialysis; hypertension; hypercholesterolemia; diabetes mellitus; coronary artery disease; history of coronary bypass; history of stroke in the past; getting antibiotics. As per Dr. Day, maybe the patient has sleep apnea components. Repeat x-rays. Gastric and deep venous thrombosis prophylaxis. Appreciate anesthesiology medical doctor and ID input and nephrology help. The patient has dyslipidemia. Continue intermittent vancomycin, IV Merrem day #3 and doxycycline. Blood cultures are negative. Sputum culture is showing mixed organism, we will wait for final result. Target of 7 days of antibiotics. Continue present treatment. We will follow. Karla Singh MD
--- NOTE | 2016-12-10 14:45 | CP.PCM.PN ---
Subjective - Date & Time of Evaluation Date of Evaluation: 12/10/16 Time of Evaluation: 10:40 - Subjective Subjective: Comfortable in bed, not in distress, afebrile, breathing well. Objective - Vital Signs/Intake and Output Vital Signs (last 24 hours): Temp Pulse Resp BP Pulse Ox 97.1 F L 79 18 97/49 L 97 12/09/16 17:00 12/09/16 17:00 12/09/16 17:00 12/09/16 17:00 12/09/16 17:00 Intake and Output: 12/10/16 12/10/16 06:59 18:59 Intake Total 180 Output Total 0 Balance 180 - Medications Medications: Current Medications Atorvastatin Calcium (Lipitor) 40 mg PO DAILY [facility] Last Admin: 12/09/16 10:40 Dose: 40 mg Calcium Acetate (Phoslo) 1,334 mg PO TID [facility] Last Admin: 12/09/16 17:38 Dose: 1,334 mg Carvedilol (Coreg) 25 mg PO DAILY [facility] Last Admin: 12/09/16 10:40 Dose: 25 mg Clopidogrel Bisulfate (Plavix) 75 mg PO DAILY [facility] Last Admin: 12/09/16 10:40 Dose: 75 mg Home Med (Home Med) 1 unit PO BID [facility] Last Admin: 12/09/16 18:12 Dose: Not Given Hydralazine HCl (Apresoline) 50 mg PO DAILY [facility] Last Admin: 12/09/16 10:41 Dose: 50 mg Meropenem 250 mg/ Sodium (Chloride) 100 mls @ 100 mls/hr IVPB Q12H [facility] PRN Reason: Protocol Stop: 12/16/16 10:01 Last Admin: 12/10/16 00:16 Dose: 100 mls/hr Doxycycline Hyclate 100 mg/ (Sodium Chloride) 100 mls @ 100 mls/hr IVPB Q12 [facility] PRN Reason: Protocol Stop: 12/15/16 10:01 Last Admin: 12/09/16 21:37 Dose: 100 mls/hr Insulin Detemir (Levemir) 10 unit SC HS [facility] Last Admin: 12/09/16 21:47 Dose: Not Given Pantoprazole Sodium (Protonix Ec Tab) 40 mg PO DAILY [facility] Last Admin: 12/09/16 10:41 Dose: 40 mg Vitamin B Complex/Vit C/Folic Acid (Nephro-Christiano) 1 tab PO DAILY [facility] Last Admin: 12/09/16 10:40 Dose: 1 tab - Labs Labs: 12/09/16 06:25 12/09/16 06:25 PT 11.6 Seconds (9.9-11.8) 12/06/16 18:20 INR 1.07 (0.93-1.08) 12/06/16 18:20 APTT 30.3 Seconds (23.7-30.8) 12/06/16 18:20 - Constitutional Appears: Non-toxic, No Acute Distress - Head Exam Head Exam: NORMAL INSPECTION - ENT Exam ENT Exam: Mucous Membranes Moist - Neck Exam Neck Exam: absent: Meningismus - Respiratory Exam Respiratory Exam: Decreased Breath Sounds - Cardiovascular Exam Cardiovascular Exam: +S1, +S2 - GI/Abdominal Exam GI & Abdominal Exam: Soft. absent: Tenderness Assessment and Plan - Assessment and Plan (Free Text) Plan: Assessment Severe sepsis due to right sided healthcare-associated pneumonia, clinically improving HTN dyslipidemia DM ESRD on HD CAD S/P CABG CVA Plan Continue Merrem (Day 4) and Doxycycline; blood cx are negative; sputum cx only showing normal oral shanti - target up to 7 days of antibiotics - when ready for discharge, the patient can be switched to PO Levaquin 500 mg every 48 hours to complete the course of therapy will continue to monitor clinically
[2016-12-10 16:18] VITALS: BP 130/67; PULSE 85; TEMP 98; O2SAT 98
--- NOTE | 2016-12-10 20:29 | PN ---
DATE: 12/10/2016 REFERRING PHYSICIAN: Dr. Singh. SUBJECTIVE: He is lying in the bed at 45 degrees. No headache. No dizziness. No nausea. No vomiting. No leg pain or leg swelling. OBJECTIVE: GENERAL: No acute distress. VITAL SIGNS: Temperature is 98, heart rate is 102, respiratory rate is 20, blood pressure 137/69, pulse ox 99% on room air. HEENT: Moist mucous membranes. No oral thrush noted. NECK: Supple. No JVD. LUNGS: Fair airflow with few rhonchi. HEART S1 and S2. ABDOMEN: Soft and nontender. No organomegaly. EXTREMITIES: There is no edema. NEUROLOGIC: Awake, alert and follows simple commands. MEDICATIONS: He is on hydralazine 50 mg daily, Aranesp 40 mcg subcu was given, Coreg 25 mg daily, doxycycline 100 mg twice a day, Levemir 10 units subcu at bedtime, Lipitor 40 mg daily, meropenem 250 mg twice a day, PhosLo 3 times a day, Plavix 75 mg daily, Protonix 40 mg daily. LABORATORY DATA: Shows blood sugar today 198. Chest x-ray repeated yesterday showed small effusion layered posteriorly. IMPRESSION AND PLAN: Resolving sepsis, pleural effusion, normal pulmonary infiltrate, renal failure, dialysis-dependent, hypertension, hyperlipidemia, diabetes, coronary artery disease, history of coronary bypass surgery, history of stroke. Pulmonary point of view, doing okay. Keep head at 45 degrees, bronchodilator, aspiration precaution, gastric prophylaxis, deep vein thrombosis prophylaxis, and physical therapy, out of bed to chair. Thank you and we will follow with you. Trinidad Day MD
[2016-12-11] MEDS ORDERED: Darbepoetin Alfa 40 mcg/ml Inj SC ONE (08:59)
[2016-12-11] MEDS ORDERED: levoFLOXacin 500 MG TAB PO SCH (10:00)
--- NOTE | 2016-12-30 20:44 | DS ---
CHIEF COMPLAINT: Fever and chills. HISTORY OF PRESENT ILLNESS: The patient is an 81 years old male with past medical history of hypertension; hypercholesterolemia; diabetes mellitus; end-stage renal disease, on hemodialysis 3 times a week; coronary artery disease, status post CABG; CVA, came to the emergency room with fever and chills. The patient went for dialysis and was told to repeat dialysis next day. The patient was sent to emergency room after physician because of fever. No abdominal pain. No nausea, vomiting, or diarrhea. We admitted the patient, did chest x-rays, seen by Dr. Day, Dr. Justin Thompson, Dr. Aayush Patel was the patient's it operations specialist, improved, sent back to [facility] for continuity of care and for physical therapy. PAST MEDICAL HISTORY: Hypertension, renal insufficiency, on hemodialysis. FAMILY HISTORY: Father and mother noncontributory. HABITS: No smoking, no drug, no ethanol. ALLERGIES: THE PATIENT IS NOT ALLERGIC WITH ANY MEDICATION. HOME MEDICATIONS: Reviewed by me. REVIEW OF SYSTEMS: The patient seen and examined on the bedside, looking comfortable. No nausea, vomiting, or diarrhea. No hematuria, no hematochezia. No swelling of the legs. No chest pain. No palpitation. No headache. No dizziness. PHYSICAL EXAMINATION: VITAL SIGNS: Temperature 98, heart rate 102, respiratory rate 20, blood pressure 120/80 , pulse oximetry 99% on room air. HEENT: Head normocephalic, atraumatic. Eyes, PERRLA. Extraocular muscles intact. Conjunctiva clear. Nose is patent. Mucous membrane moist. NECK: Supple. No carotid bruits, JVD or thyromegaly. CHEST: Bilaterally symmetrical. HEART: S1 and S2 positive. LUNGS: Clear to auscultation. ABDOMEN: Soft, nontender. No organomegaly. EXTREMITIES: No edema, no cyanosis. NEUROLOGIC: The patient is awake and alert, follows simple commands. MEDICATIONS: Hydralazine, Aranesp, Coreg, doxycycline, Levemir, Lipitor, meropenem, PhosLo, Plavix, Protonix. LABORATORY DATA: White blood cells 6.1, hemoglobin 9.0, hematocrit 28.9, platelets 107. Glucose 108, 198, 136, 148. ASSESSMENT AND PLAN: The patient is an 81 years old male with resolving sepsis; pleural effusion; pulmonary infiltrate; renal insufficiency, on hemodialysis 3 times a week; hypertension; hypercholesterolemia; diabetes mellitus, coronary artery disease, history of coronary bypass surgery; history of stroke, improved, send back to [facility] for continuity of care completing antibiotics and physical therapy. Karla Singh MD MTDKimmie
== END 2016-12-10 18:05 | DRG 871 ==
LOC: ED 17:43 → ERH 20:51 → 3RSO 21:28
PROVIDERS: ADMIT Internal Medicine; ATTEND Internal Medicine
PROC: 5A1D00Z (ICD-10-PCS; principal; 2016-12-09)
DX: A41.9 Sepsis, unspecified organism (principal); J18.9 Pneumonia, unspecified organism; J90 Pleural effusion, not elsewhere classified; N18.6 End stage renal disease; I12.0 Hypertensive chronic kidney disease with stage 5 chronic kidney disease or end stage renal disease; N25.81 Secondary hyperparathyroidism of renal origin; D69.6 Thrombocytopenia, unspecified; E11.22 Type 2 diabetes mellitus with diabetic chronic kidney disease; E11.65 Type 2 diabetes mellitus with hyperglycemia; D64.9 Anemia, unspecified; R65.20 Severe sepsis without septic shock; Y95 Nosocomial condition; Z86.73 Personal history of transient ischemic attack (TIA), and cerebral infarction without residual deficits; E78.5 Hyperlipidemia, unspecified; E05.90 Thyrotoxicosis, unspecified without thyrotoxic crisis or storm; E78.00 Pure hypercholesterolemia, unspecified; E83.39 Other disorders of phosphorus metabolism; E83.51 Hypocalcemia; G47.30 Sleep apnea, unspecified; I25.10 Atherosclerotic heart disease of native coronary artery without angina pectoris; Z79.02 Long term (current) use of antithrombotics/antiplatelets; Z79.899 Other long term (current) drug therapy; Z95.1 Presence of aortocoronary bypass graft; Z99.2 Dependence on renal dialysis

== ENCOUNTER 2016-12-13 17:42 | Inpatient (IN) | payer MEDICARE, BC ==
[2016-12-13] MEDS ORDERED: Piperacillin/Tazobact 3.375 gm 100 ML IVPB STA (17:54)
[2016-12-13] MEDS ORDERED: Vancomycin 1gm in NS 250ml 1 GM/250 ML BAG IVPB STA (17:54)
[2016-12-13] MEDS ORDERED: Sodium Chloride 0.9% 500 ML IV STA (17:55)
--- NOTE | 2016-12-13 18:01 | ED PDOC ---
Arrival/HPI - General Chief Complaint: Fever Time Seen by Provider: 12/13/16 17:44 Historian: Patient - History of Present Illness Narrative History of Present Illness (Text): 12/13/16 17:58 A 81 year old male, whose past medical history includes hypertension, hyperlipidema, and end stage renal disease on dialysis, presents from dialysis with fever from extended stay due to pneumonia. The patient denies any chest pain, headaches, shortness of breath, or any other complaints at this time. The patient admits to making very little urine and received a 3 hour dialysis. Time/Duration: 4-6 hours Symptom Onset: Sudden Symptom Course: Unchanged Activities at Onset: Rest, Light Context: Other Past Medical History - Provider Review Nursing Documentation Reviewed: Yes - Infectious Disease Hx of Infectious Diseases: None - Cardiac Hx Hypertension: Yes - Neurological HX Cerebrovascular Accident: Yes (December 2015) - Renal Hx Dialysis: Yes () - Endocrine/Metabolic Hx Diabetes Mellitus Type 2: Yes - Musculoskeletal/Rheumatological Hx Falls: Yes - Psychiatric Hx Substance Use: No - Surgical History Other/Comment: dialysis access - Anesthesia Hx Anesthesia: Yes Hx Anesthesia Reactions: No Family/Social History - Physician Review Nursing Documentation Reviewed: Yes Family/Social History: No Known Family HX Smoking Status: Never Smoked Hx Alcohol Use: No Hx Substance Use: No Allergies/Home Meds Allergies/Adverse Reactions: Allergies No Known Allergies Allergy (Verified 09/02/16 18:34) Home Medications: Home Meds Medication Instructions Recorded Confirmed Atorvastatin [Lipitor] 40 mg PO DAILY 09/02/16 12/13/16 Calcium Acetate [Phoslo] 2 tab PO TID 09/02/16 12/13/16 Carvedilol [Coreg] 25 mg PO DAILY 09/02/16 12/13/16 Clopidogrel [Plavix] 75 mg PO DAILY 09/02/16 12/13/16 Vitamin B Complex/Vit C/Folic 1 tab PO DAILY 09/02/16 12/13/16 [Nephro-Christiano] hydrALAZINE [Apresoline] 50 mg PO DAILY 09/02/16 12/13/16 Fidaxomicin [Dificid] 200 mg PO BID 12/06/16 12/13/16 Review of Systems - Physician Review All systems were reviewed & negative as marked: Yes - Review of Systems Constitutional: Fevers Respiratory: absent: SOB Cardiovascular: absent: Chest Pain Neurological: absent: Headache Physical Exam Vital Signs Reviewed: Yes Vital Signs Temp Pulse Resp BP Pulse Ox 12/14/16 03:30 78 18 118/62 99 12/13/16 23:05 79 20 100 12/13/16 21:19 98.9 F 85 20 112/53 L 99 12/13/16 20:45 85 14 101/43 L 100 12/13/16 19:46 99.0 F 91 H 18 101/44 L 99 12/13/16 18:59 101 H 19 117/62 100 12/13/16 17:45 102.7 F H Temperature: Febrile Mental Status: Positive for: other - Systems Exam Head: Present: Atraumatic, Normocephalic Pupils: Present: PERRL Extroacular Muscles: Present: EOMI Conjunctiva: Present: Normal Mouth: Present: Moist Mucous Membranes Neck: Present: Normal Range of Motion Respiratory/Chest: Present: Clear to Auscultation, Good Air Exchange. No: Respiratory Distress, Accessory Muscle Use Cardiovascular: Present: Regular Rate and Rhythm, Normal S1, S2. No: Murmurs Abdomen: Present: Normal Bowel Sounds. No: Tenderness, Distention, Peritoneal Signs Back: Present: Normal Inspection Upper Extremity: Present: Normal Inspection. No: Cyanosis, Edema Lower Extremity: Present: Normal Inspection. No: Edema Neurological: Present: GCS=15, CN II-XII Intact, Speech Normal Skin: Present: Warm, Dry, Normal Color. No: Rashes Psychiatric: Present: Alert, Oriented x 3, Normal Insight, Normal Concentration Medical Decision Making ED Course and Treatment: 12/13/16 18:04 Impression: A 81 year old male with fever and body aches. Plan: -- Chest X-ray -- Labs -- IV Fluids, Vancomycin, Zosyn -- Urinalysis -- Reassess and disposition Prior Visits: Notes and results from previous visits were reviewed. The patient was last seen in the emergency department on 12/06/16 for fever. The patient was admitted to the hospital. Progress Notes: 12/13/16 18:09 EKG: Ordered, reviewed, and independently interpreted the EKG. Rate : 113 BPM Rhythm : Sinus tachycardia Interpretation : LVH with V pole abnormality. No ST-segment elevations or depressions, no T-wave inversions, normal intervals. 12/13/16 18:37 Case was discussed with Dr. Patel and he gave the okay for contrast IV. 12/13/16 20:[address], iv line infiltrated during adminstration of iv contrast. ct was done w/o iv contrast 12/13/16 21:30 Reviewed sono, CT Chest, Abdomen, and Pelvis IMPRESSION: Dictated and Authenticated by: Marlyn Maciel MD Bladder wall is significantly thickened, correlate clinically for cystitis and to exclude underlying lesion. Moderate bilateral effusions. Cholelithiasis. Notably distended gallbladder. Please see additional details/findings as above. Some of the above findings warrant followup evaluation. 12/13/16 22:58 US Abdomen IMPRESSION: Dictated and Authenticated by: Marlyn Maciel MD Gallstones and sludge. Distended gallbladder. Gallbladder wall thickness upper limits of normal. Correlate clinically. Followup as warranted. Nuclear hepatobiliary scan may aid in evaluation as warranted. Bilateral pleural effusions. 12/13/16 23:05 Case discussed with surgical services asst application developer manager, who is aware and agrees to evalute pt. 12/13/16 23:[address] Singh, who is aware and agrees with plan. Accepts pt in to her service. Pt will be admitted to Telemetry for cholecystitis, NSTEMI, and sepsis. Request Dr. Brady on consult. - Critical Care Critical Care Minutes: 30 minutes - Lab Interpretations Lab Results: 12/13/16 18:00 12/13/16 18:00 Lab Results 12/13/16 18:50: PT 12.3 H, INR 1.14 H, APTT 42.0 H 12/13/16 18:45: Urine Color Bess, Urine Appearance Clear, Urine pH 6.0, Ur Specific [place] 1.020, Urine Protein >=300 H, Urine Glucose (UA) 250 H, Urine Ketones Negative, Urine Blood Large H, Urine Nitrate Negative, Urine Bilirubin Negative, Urine Urobilinogen 0.2, Ur Leukocyte Esterase Trace H, Urine RBC Tntc , Urine WBC 2 - 5, Ur Epithelial Cells 4 - 5, Urine Bacteria Small 12/13/16 18:25: pO2 47, VBG pH 7.41, VBG pCO2 52.0, VBG HCO3 33.0 H, VBG Total CO2 34.6 H, VBG O2 Sat (Calc) 88.0 H, VBG Base Excess 6.9 H, VBG Potassium 3.6, Glucose 165 H, Lactate 1.5, FiO2 21.0, Sodium 137.0, Chloride 99.0, Venous Blood Potassium 3.6 12/13/16 18:00: Sodium 138, Potassium 4.2, Chloride 97 L, Carbon Dioxide 29, Anion Gap 16, BUN 17, Creatinine 2.5 H, Est GFR ( Amer) 30, Est GFR (Non- Af Amer) 25, Random Glucose 162 H, Calcium 8.8, Magnesium 1.8, Total Bilirubin 0.6, AST 41, ALT 57 H, Alkaline Phosphatase 171 H, Lactate Dehydrogenase 573, Total Creatine Kinase < 20 L, Troponin I 0.26 H*, Total Protein 8.0, Albumin 3.6 , Globulin 4.4, Albumin/Globulin Ratio 0.8 L, Lipase 437 H 12/13/16 18:00: WBC 7.5 D, RBC 4.61, Hgb 10.5 L, Hct 32.3 L, MCV 70.1 L, MCH 22.8 L, MCHC 32.5, RDW 16.9 H, Plt Count 138, Gran % 78.3 H, Lymph % (Auto) 14.1 L, [place] % (Auto) 2.8, Eos % (Auto) 4.1, Baso % (Auto) 0.7, Gran # 5.90, Lymph # 1.1 L, [place] # 0.2, Eos # 0.3, Baso # 0.05 I have reviewed the lab results: Yes - RAD Interpretation Radiology Orders: 12/13/16 17:53 CHEST PORTABLE [RAD] Stat 12/13/16 18:34 CHEST,ABDOMEN, PELVIS W/O CONT [CT] Stat 12/13/16 21:33 ABDOMEN COMPLETE [US] Stat Supply Crib Attendant: ED Physician, Radiologist - EKG Interpretation Interpreted by ED Physician: Yes Type: 12 lead EKG - Medication Orders Current Medication Orders: Atorvastatin Calcium (Lipitor) 40 mg PO DAILY [facility] Last Admin: 12/14/16 11:20 Dose: 40 mg Calcium Acetate (Phoslo) 1,334 mg PO WM [facility] Last Admin: 12/14/16 12:04 Dose: Not Given Non-Admin Reason: NPO Carvedilol (Coreg) 25 mg PO DAILY [facility] Last Admin: 12/14/16 11:20 Dose: 25 mg Clopidogrel Bisulfate (Plavix) 75 mg PO DAILY [facility] Last Admin: 12/14/16 11:20 Dose: 75 mg Home Med (Home Med) 1 unit PO BID [facility] Last Admin: 12/14/16 12:01 Dose: Hydralazine HCl (Apresoline) 50 mg PO DAILY [facility] Last Admin: 12/14/16 11:19 Dose: 50 mg Vitamin B Complex/Vit C/Folic Acid (Nephro-Christiano) 1 tab PO DAILY [facility] Last Admin: 12/14/16 11:20 Dose: 1 tab Discontinued Medications Acetaminophen (Tylenol 325mg Tab) 975 mg PO STAT [facility] Stop: 12/13/16 18:14 Last Admin: 12/13/16 19:00 Dose: 975 mg Aspirin (Aspirin) 325 mg PO STAT [facility] Stop: 12/13/16 23:03 Last Admin: 12/14/16 02:35 Dose: 325 mg Vancomycin HCl (Vancomycin 1gm) 1 gm in 250 mls @ 167 mls/hr IVPB [facility] PRN Reason: Protocol Stop: 12/13/16 19:23 Last Admin: 12/13/16 20:45 Dose: 167 mls/hr Piperacillin Sod/Tazobactam Sod (Zosyn 3.375 In Ns 100ml) 100 mls @ 200 mls/hr IVPB [facility] PRN Reason: Protocol Stop: 12/13/16 18:23 Last Admin: 12/13/16 18:20 Dose: 200 mls/hr Sodium Chloride (Sodium Chloride 0.9%) 500 mls @ 999 mls/hr IV .Q31M [facility] Stop: 12/13/16 18:25 Last Admin: 12/13/16 18:20 Dose: 999 mls/hr Piperacillin Sod/Tazobactam Sod (Zosyn 2.25 Gm In 0.9% 100 Ml) 2.25 gm in 100 mls @ 100 mls/hr IVPB Q6 [facility] PRN Reason: Protocol Stop: 12/14/16 06:59 Last Admin: 12/14/16 06:54 Dose: 100 mls/hr Iodixanol (Visipaque 320 Mg/Ml 100 Ml) Confirm Administered Dose 100 ml IV .STK- MED ONE Stop: 12/13/16 18:46 - Scribe Statement The provider has reviewed the documentation as recorded by the Scribe -- Labs -- Zofran, Protonix, IV Fluids -- Urinalysis Disposition/Present on Arrival - Present on Arrival Any Indicators Present on Arrival: No History of DVT/PE: No History of Uncontrolled Diabetes: No Urinary Catheter: No History of Decub. Ulcer: No History Surgical Site Infection Following: None - Disposition Have Diagnosis and Disposition been Completed?: Yes Diagnosis: Sepsis, NSTEMI (non-ST elevated myocardial infarction), Cholecystitis Disposition: HOSPITALIZED Disposition Time: 11:00 Condition: FAIR
[2016-12-13 18:08] LABS: BASO # 0.05 K/mm3 (0.0-2.0); BASO % 0.7 % (0.0-3.0); EOS # 0.3 (0.0-0.7); EOS % 4.1 % (1.5-5.0); GRAN % 78.3 % (50.0-68.0); HEMATOCRIT 32.3 % (42.0-52.0); LYMPH # 1.1 (1.2-3.4); LYMPH % 14.1 % (22.0-35.0); MEAN CELL VOLUME 70.1 fl (80.0-105.0); MEAN CORPUSCULAR HEMOGLOBIN 22.8 pg (25.0-35.0); MEAN CORPUSCULAR HGB CONC 32.5 g/dl (31.0-37.0); MONO # 0.2 (0.1-0.6); MONO % 2.8 % (1.0-6.0); PLATELET COUNT 138 10^3/uL (120.0-450.0); RED CELL DISTRIBUTION WIDTH 16.9 % (11.5-14.5); WHITE BLOOD COUNT 7.5 10^3/ul (4.5-11.0)
[2016-12-13 18:19] LABS: ALB/GLOB RATIO 0.8 (1.1-1.8); ALKALINE PHOSPHATASE 171 U/L (38-133); ALT/SGPT 57 U/L (7-56); AST/SGOT 41 U/L (15-59); BILIRUBIN,TOTAL 0.6 mg/dL (0.2-1.3); BLOOD UREA NITROGEN 17 mg/dL (7-21); CALCIUM 8.8 mg/dL (8.4-10.5); CARBON DIOXIDE 29 mmol/L (21-33); CHLORIDE 97 mmol/L (98-107); GFR AFRICAN-AMERICAN 30; GLUCOSE,RANDOM 162 mg/dL (70-110); LIPASE 437 U/L (23-300); MAGNESIUM 1.8 mg/dL (1.7-2.2); POTASSIUM 4.2 mmol/L (3.6-5.0); SODIUM 138 mmol/L (132-148)
[2016-12-13 18:34] LABS: TROPONIN I 0.26 ng/mL
[2016-12-13] MEDS ORDERED: Iodixanol 320 MG/ML 100 ML BOTTLE IV ONE (18:45)
[2016-12-13 18:52] LABS: VENOUS BLOOD GAS BASE EXCESS 6.9 mmol/L (0.0-2.0); VENOUS BLOOD PH 7.41 (7.32-7.43)
[2016-12-13 19:08] LABS: INR 1.14 (0.93-1.08)
[2016-12-13 19:30] LABS: URINE BILIRUBIN NEGATIVE (NEGATIVE); URINE BLOOD LARGE (NEGATIVE); URINE GLUCOSE (UA) 250 mg/dL (NEGATIVE); URINE KETONE NEGATIVE (NEGATIVE); URINE LEUKOCYTE ESTERASE TRACE Leu/uL (NEGATIVE); URINE PROTEIN >=300 mg/dL (<30 mg/dL); URINE UROBILINOGEN 0.2 E.U./dL (<1 E.U./dL)
[2016-12-13 19:32] LABS: URINE APPEARANCE CLEAR (CLEAR); URINE COLOR AMBER (YELLOW)
[2016-12-13 19:37] LABS: URINE BACTERIA SMALL (NEG); URINE RBC TNTC /hpf (0-2)
--- NOTE | 2016-12-13 21:32 | CT ---
EXAM: CT Chest, Abdomen and Pelvis Without Intravenous Contrast CLINICAL HISTORY: 81 years old, male; Signs and symptoms; Other: Sepsis; Other: Hypertension TECHNIQUE: Axial computed tomography images of the chest, abdomen and pelvis without intravenous contrast. All CT scans at this facility use one or more dose reduction techniques, viz.: automated exposure control; ma/kV adjustment per patient size (including targeted exams where dose is matched to indication; i.e. head); or iterative reconstruction technique. Coronal and sagittal reformatted images were created and reviewed. COMPARISON: No relevant prior studies available. FINDINGS: Question left thyroid nodule. Atherosclerosis. At the level of the main pulmonary artery, the ascending aorta measures 3.8 cm and descending aorta measures 2.7 cm. Coronary artery calcifications. Shotty mediastinal nodes. Limited evaluation of the blanca without contrast. Moderate bilateral effusions. Atelectasis/scarring. Median sternotomy wires. Postsurgical changes. Surgical clips. Right central catheter tip at cavoatrial junction. No significant pericardial effusion. The unenhanced liver, spleen, right adrenal gland and pancreas demonstrate no acute abnormalities. Prominence of the left adrenal gland, possibly underlying nodule, limited evaluation without contrast. Cholelithiasis. Notably distended gallbladder. No obstructing renal calculus or hydronephrosis. Evaluation of the bowel significantly limited without enteric contrast, especially for underlying inflammation or lesion. No bowel obstruction. Normal caliber appendix. Colonic diverticula. No significant ascites. No free air. Heterogeneous prostate. Bladder wall is significantly thickened, correlate clinically for cystitis and to exclude underlying lesion. Degenerative changes. Nonspecific lytic foci in right iliac bone, uncertain etiology. IMPRESSION: Bladder wall is significantly thickened, correlate clinically for cystitis and to exclude underlying lesion. Moderate bilateral effusions. Cholelithiasis. Notably distended gallbladder. Please see additional details/findings as above. Some of the above findings warrant followup evaluation.
--- NOTE | 2016-12-13 22:58 | US ---
EXAM: US Abdomen Complete CLINICAL HISTORY: 81 years old, male; Pain; Abdominal pain; Generalized; Additional info: Upper abd pain TECHNIQUE: Real-time ultrasound of the abdomen (complete) with image documentation. COMPARISON: CT - CHEST,ABDOMEN,PELVIS W/O CONT 12/13/2016 8:19:42 PM FINDINGS: Liver: Unremarkable as visualized. No intrahepatic bile duct dilation. Gallbladder: Distended gallbladder. Gallstones and sludge noted. Gallbladder wall thickness upper limits of normal measuring approximately 3 mm. Common bile duct: No dilation, measured at 5 mm. Pancreas: Unremarkable as visualized. Kidneys: Right kidney measures 8.5 cm. Left kidney measures 8.4 cm. No hydronephrosis. Spleen: No splenomegaly. Aorta/IVC: Unremarkable as visualized. Bilateral pleural effusions. IMPRESSION: Gallstones and sludge. Distended gallbladder. Gallbladder wall thickness upper limits of normal. Correlate clinically. Followup as warranted. Nuclear hepatobiliary scan may aid in evaluation as warranted. Bilateral pleural effusions.
--- NOTE | 2016-12-13 23:19 | CP.PCM.CON ---
History of Present Illness - History of Present Illness History of Present Illness: General Surgery Dr. Brady 81 y/o M w/ PMHx HTN, CVA, HD, DM2 presents to the ED c/o fever and chills. Pt was discharged on 12/10/16 after resolution of leukocytosis and PNA. Pt is a poor historian, though reports F/C that began after discharge. Pt denies abd pain, N/V, D/C. Pt reports decreased appetite, dysphagia, and 50lb weight loss over the last 3mons. Pt is unsure as to whether he's previously had an EGD or work up for the dysphagia. PMHx: see above Meds: reviewed in chart NKDA PSHx: Permacath SHx: denies tobacco, EtOH, drugs FHx: noncontributory Review of Systems - Review of Systems All systems: reviewed and no additional remarkable complaints except (see HPI) Past Patient History - Infectious Disease Hx of Infectious Diseases: None - Past Social History Smoking Status: Never Smoked - CARDIAC Hx Hypertension: Yes - NEUROLOGICAL HX Cerebrovascular Accident: Yes (December 2015) - RENAL Hx Dialysis: Yes () - ENDOCRINE/METABOLIC Hx Diabetes Mellitus Type 2: Yes - MUSCULOSKELETAL/RHEUMATOLOGICAL Hx Falls: Yes - PSYCHIATRIC Hx Substance Use: No - SURGICAL HISTORY Other/Comment: dialysis access - ANESTHESIA Hx Anesthesia: Yes Hx Anesthesia Reactions: No Meds Allergies/Adverse Reactions: Allergies Allergy/AdvReac Type Severity Reaction Status Date / Time No Known Allergies Allergy Verified 09/02/16 18:34 Physical Exam - Constitutional Appears: Non-toxic, In Acute Distress - Head Exam Head Exam: NORMAL INSPECTION - Eye Exam Eye Exam: Normal appearance - ENT Exam ENT Exam: Mucous Membranes Moist - Respiratory Exam Respiratory Exam: NORMAL BREATHING PATTERN. absent: Accessory Muscle Use, Respiratory Distress - Cardiovascular Exam Cardiovascular Exam: absent: Bradycardia, Tachycardia - GI/Abdominal Exam GI & Abdominal Exam: Soft. absent: Distended, Guarding, Rebound, Tenderness Additional comments: negative Gaona's sign - Extremities Exam Extremities exam: Positive for: normal inspection - Neurological Exam Neurological exam: Alert - Psychiatric Exam Psychiatric exam: Normal Affect, Normal Mood - Skin Skin Exam: Dry, Intact, Normal Color, Warm Results - Vital Signs Recent Vital Signs: Last Vital Signs Temp 98.9 F 12/13/16 21:19 Pulse 79 12/13/16 23:05 Resp 20 08/26/17 23:05 BP 112/53 L 12/13/16 21:19 Pulse Ox 100 12/13/16 23:05 - Labs Result Diagrams: 12/13/16 18:00 12/13/16 18:00 Labs: Laboratory Results - last 24 hr 12/13/16 12/13/16 12/13/16 18:00 18:00 18:25 WBC 7.5 D RBC 4.61 Hgb 10.5 L Hct 32.3 L MCV 70.1 L MCH 22.8 L MCHC 32.5 RDW 16.9 H Plt Count 138 Gran % 78.3 H Lymph % (Auto) 14.1 L [place] % (Auto) 2.8 Eos % (Auto) 4.1 Baso % (Auto) 0.7 Gran # 5.90 Lymph # 1.1 L [place] # 0.2 Eos # 0.3 Baso # 0.05 PT INR APTT pO2 47 VBG pH 7.41 VBG pCO2 52.0 VBG HCO3 33.0 H VBG Total CO2 34.6 H VBG O2 Sat (Calc) 88.0 H VBG Base Excess 6.9 H VBG Potassium 3.6 Glucose 165 H Lactate 1.5 FiO2 21.0 Sodium 138 137.0 Potassium 4.2 Chloride 97 L 99.0 Carbon Dioxide 29 Anion Gap 16 BUN 17 Creatinine 2.5 H Est GFR ( Amer) 30 Est GFR (Non-Af Amer) 25 Random Glucose 162 H Calcium 8.8 Magnesium 1.8 Total Bilirubin 0.6 AST 41 ALT 57 H Alkaline Phosphatase 171 H Lactate Dehydrogenase 573 Total Creatine Kinase < 20 L Troponin I 0.26 H* Total Protein 8.0 Albumin 3.6 Globulin 4.4 Albumin/Globulin Ratio 0.8 L Lipase 437 H Venous Blood Potassium 3.6 Urine Color Urine Appearance Urine pH Ur Specific [place] Urine Protein Urine Glucose (UA) Urine Ketones Urine Blood Urine Nitrate Urine Bilirubin Urine Urobilinogen Ur Leukocyte Esterase Urine RBC Urine WBC Ur Epithelial Cells Urine Bacteria 12/13/16 12/13/16 18:45 18:50 WBC RBC Hgb Hct MCV MCH MCHC RDW Plt Count Gran % Lymph % (Auto) [place] % (Auto) Eos % (Auto) Baso % (Auto) Gran # Lymph # [place] # Eos # Baso # PT 12.3 H INR 1.14 H APTT 42.0 H pO2 VBG pH VBG pCO2 VBG HCO3 VBG Total CO2 VBG O2 Sat (Calc) VBG Base Excess VBG Potassium Glucose Lactate FiO2 Sodium Potassium Chloride Carbon Dioxide Anion Gap BUN Creatinine Est GFR ( Amer) Est GFR (Non-Af Amer) Random Glucose Calcium Magnesium Total Bilirubin AST ALT Alkaline Phosphatase Lactate Dehydrogenase Total Creatine Kinase Troponin I Total Protein Albumin Globulin Albumin/Globulin Ratio Lipase Venous Blood Potassium Urine Color [place] Urine Appearance Clear Urine pH 6.0 Ur Specific [place] 1.020 Urine Protein >=300 H Urine Glucose (UA) 250 H Urine Ketones Negative Urine Blood Large H Urine Nitrate Negative Urine Bilirubin Negative Urine Urobilinogen 0.2 Ur Leukocyte Esterase Trace H Urine RBC Tntc Urine WBC 2 - 5 Ur Epithelial Cells 4 - 5 Urine Bacteria Small - Imaging and Cardiology US - abdomen Status: Image reviewed by me, Report reviewed by me CT scan - abdomen Status: Image reviewed by me, Report reviewed by me Assessment & Plan - Assessment and Plan (Free Text) Assessment: 81 y/o M w/ cholelithiasis - Abd US: cholelithiasis, sludge. no pericholecystic fluid, GB wall thickening, CBD dilation - f/u HIDA r/o acute cholecystitis - cont medical management Will discuss w/ Dr. Jose Antonio Chery DO PGY2
[2016-12-14] MEDS: Piperacillin/Tazobact 2.25gm 2.25 GM/100 ML BAG IVPB SCH ×3 (02:36→23:27)
--- NOTE | 2016-12-14 05:41 | HP ---
CHIEF COMPLAINT: Fever. HISTORY OF PRESENT ILLNESS: Mr. Jose Arellano is an 81-year-old male with a past medical history of hypertension, hypercholesterolemia, end-stage renal disease on hemodialysis, came from dialysis center for fever and chills. The patient denies any chest pain, headache, or shortness of breath. No nausea, vomiting, or diarrhea. Making little urine. Got three hours of dialysis. The patient was recently discharged from [facility] to [facility]. PAST MEDICAL HISTORY: CVA, renal failure on hemodialysis, diabetes mellitus. FAMILY HISTORY: Father and mother noncontributory. HABITS: No smoking. No drug or ethanol. ALLERGIES: THE PATIENT IS NOT ALLERGIC WITH ANY MEDICATIONS. HOME MEDICATIONS: Lipitor, PhosLo, Coreg, Plavix, hydralazine. REVIEW OF SYSTEMS: The patient is examined on the bedside in the ER. Still is feeling feverish, chills. No shortness of breath and no chest pain. No headache or dizziness. PHYSICAL EXAMINATION: VITAL SIGNS: Temperature 98.9, pulse 85, respiratory 20, blood pressure 112/53, pulse oxymetry 100%. HEENT: Head normocephalic and atraumatic. Eyes, PERRLA. Extraocular muscles intact. Conjunctivae are clear. Nose is patent. Mucous membrane moist. NECK: Supple. No carotid bruit. No thyromegaly. CHEST: Bilaterally symmetrical. HEART: S1 and S2 positive. LUNGS: Clear to auscultation. ABDOMEN: Soft. Bowel sounds positive. No organomegaly. EXTREMITIES: No edema. No cyanosis. NEUROLOGIC: The patient is awake and alert. Moving all four extremities. No focal deficits. LABORATORY DATA: White blood cell count 7.5, hemoglobin 10.5, hematocrit 32.3, platelets 138. Sodium 130, potassium 4.2, BUN 70, creatinine 2.7, glucose 162. ASSESSMENT AND PLAN: Mr. Jose Arellano is 81 years old male with anemia, hyperglycemia, hypochloremia, diabetes mellitus uncontrolled and the patient was seen on hemodialysis. Came with fever and chills. Blood culture is done. Antibiotics started. ID consult called. Heparin for hypercholesterolemia. Stage 4 renal disease, on hemodialysis; pneumonia. CAT scan of the chest and abdomen was done. It showed that the abdomen is significantly thickened, correlation clinically for cystitis and exclude anemia, moderate bilateral effusion, cholelithiasis, multiple discharge in the gallbladder, material significant as above. Some of the above findings wanted for lab evaluation. The patient called surgical consult. Discussion done with the ER physician. He was called Dr. Brady then did an ultrasound of the liver. Cardiology consult was called, Dr. Bocanegra for cardiac clearance. Surgeon consulted with Dr. Brady. We will call ID also. We will start some IV antibiotics and IV fluid. GI and DVT prophylaxis. Repeat labs. We will follow up. Karla Singh MD
[2016-12-14 06:24] VITALS: BMI 19.2
[2016-12-14] MEDS: Multivitamin Vitamin B Complex (Nephro-Vite) Tab PO SCH (11:20)
[2016-12-14] MEDS: FIDAXOMICIN 200 MG PO SCH ×2 (12:01→19:09)
--- NOTE | 2016-12-14 13:46 | RAD ---
HISTORY: sepsis COMPARISON: 12/10/2016 FINDINGS: LUNGS: No change right IJ dialysis catheter. Re- demonstrated are mild central pulmonary vascular congestive changes with bilateral effusions left larger than right PLEURA: Mild central pulmonary No significant pleural effusion identified, no pneumothorax apparent. CARDIOVASCULAR: Sternotomy wires and CABG clips again noted. Cardiomegaly. OSSEOUS STRUCTURES: No significant abnormalities. VISUALIZED UPPER ABDOMEN: Normal. OTHER FINDINGS: None. IMPRESSION: Re- demonstrated are mild central pulmonary vascular congestive changes with bilateral effusions left larger than right
--- NOTE | 2016-12-14 19:48 | CP.PCM.CON ---
History of Present Illness - History of Present Illness History of Present Illness: Infectious Disease Consultation: December 14, 2016 81 yo male with recent hospitalization to [facility] for pneumonia and fevers of at least 101.0 F. The patient with complaints of fevers and chills now. States that episodes started shortly after being discharged from the hospital. Fever up 102.7 F on triage in the ER. He was treated with Doxycycline and Meropenem in the hospital for at least a 4 day course. The patient I believe was sent home with Levaquin for treatment. Imaging studies showing a distended gallbladder and cholelithiasis. PMHx: Hypertension, Diabetes Mellitus, ESRD on HD, CAD, CVA, dyslipidemia PSHx: CABG, dialysis access Allergies: NKDA Social Hx: No reported tobacco, EtOH, or illicit drug use. Active Medications Atorvastatin Calcium (Lipitor) 40 mg PO DAILY [facility] Last Admin: 12/14/16 11:20 Dose: 40 mg Calcium Acetate (Phoslo) 1,334 mg PO WM [facility] Last Admin: 12/14/16 19:09 Dose: Not Given Carvedilol (Coreg) 25 mg PO DAILY [facility] Last Admin: 12/14/16 11:20 Dose: 25 mg Clopidogrel Bisulfate (Plavix) 75 mg PO DAILY [facility] Last Admin: 12/14/16 11:20 Dose: 75 mg Home Med (Home Med) 1 unit PO BID [facility] Last Admin: 12/14/16 19:09 Dose: Not Given Hydralazine HCl (Apresoline) 50 mg PO DAILY [facility] Last Admin: 12/14/16 11:19 Dose: 50 mg Piperacillin Sod/Tazobactam Sod (Zosyn 2.25 Gm In 0.9% 100 Ml) 2.25 gm in 100 mls @ 100 mls/hr IVPB Q6 [facility] PRN Reason: Protocol Vitamin B Complex/Vit C/Folic Acid (Nephro-Christiano) 1 tab PO DAILY [facility] Last Admin: 12/14/16 11:20 Dose: 1 tab Family Hx: none given ROS: fevers. No chest pain, abdominal pain, melena, hematuria, hematemesis, hematochezia, depression, anxiety, diarrhea, headaches, dizziness, chest pain. Past Patient History - Infectious Disease Hx of Infectious Diseases: None - Past Social History Smoking Status: Never Smoked - CARDIAC Hx Hypertension: Yes - PULMONARY Hx Respiratory Disorders: Yes Hx Pneumonia: Yes - NEUROLOGICAL HX Cerebrovascular Accident: Yes (December 2015) - HEENT Hx HEENT Problems: Yes - RENAL Hx Dialysis: Yes () - ENDOCRINE/METABOLIC Hx Diabetes Mellitus Type 2: Yes - HEMATOLOGICAL/ONCOLOGICAL Hx Blood Disorders: No - MUSCULOSKELETAL/RHEUMATOLOGICAL Hx Falls: Yes - GASTROINTESTINAL Hx Gastrointestinal Disorders: Yes HX Swallowing Problems: Yes - PSYCHIATRIC Hx Substance Use: No - SURGICAL HISTORY Other/Comment: dialysis access - ANESTHESIA Hx Anesthesia: Yes Hx Anesthesia Reactions: No Meds Allergies/Adverse Reactions: Allergies Allergy/AdvReac Type Severity Reaction Status Date / Time No Known Allergies Allergy Verified 09/02/16 18:34 - Medications Medications: Current Medications Atorvastatin Calcium (Lipitor) 40 mg PO DAILY [facility] Last Admin: 12/14/16 11:20 Dose: 40 mg Calcium Acetate (Phoslo) 1,334 mg PO WM [facility] Last Admin: 12/14/16 19:09 Dose: Not Given Carvedilol (Coreg) 25 mg PO DAILY [facility] Last Admin: 12/14/16 11:20 Dose: 25 mg Clopidogrel Bisulfate (Plavix) 75 mg PO DAILY [facility] Last Admin: 12/14/16 11:20 Dose: 75 mg Home Med (Home Med) 1 unit PO BID [facility] Last Admin: 12/14/16 19:09 Dose: Not Given Hydralazine HCl (Apresoline) 50 mg PO DAILY [facility] Last Admin: 12/14/16 11:19 Dose: 50 mg Piperacillin Sod/Tazobactam Sod (Zosyn 2.25 Gm In 0.9% 100 Ml) 2.25 gm in 100 mls @ 100 mls/hr IVPB Q6 [facility] PRN Reason: Protocol Vitamin B Complex/Vit C/Folic Acid (Nephro-Christiano) 1 tab PO DAILY [facility] Last Admin: 12/14/16 11:20 Dose: 1 tab Physical Exam - Constitutional Appears: Non-toxic, No Acute Distress, Chronically Ill - Head Exam Head Exam: ATRAUMATIC, NORMOCEPHALIC - Eye Exam Eye Exam: EOMI, PERRL Pupil Exam: NORMAL ACCOMODATION, PERRL - ENT Exam ENT Exam: Mucous Membranes Moist, Normal External Ear Exam, TM's Normal Bilaterally - Neck Exam Neck exam: Positive for: Full Rom, Normal Inspection - Respiratory Exam Respiratory Exam: Clear to Auscultation Bilateral, NORMAL BREATHING PATTERN. absent: Rales, Rhonchi, Wheezes - Cardiovascular Exam Cardiovascular Exam: REGULAR RHYTHM, RRR, +S1, +S2 - GI/Abdominal Exam GI & Abdominal Exam: Normal Bowel Sounds, Soft. absent: Distended, Tenderness - Extremities Exam Extremities exam: Positive for: full ROM, normal inspection - Neurological Exam Neurological exam: Alert, CN II-XII Intact, Oriented x3 - Psychiatric Exam Psychiatric exam: Normal Affect, Normal Mood - Skin Skin Exam: Intact, Normal Color Results - Vital Signs Recent Vital Signs: Last Vital Signs Temp 98.4 F 12/14/16 17:40 Pulse 80 12/14/16 18:00 Resp 20 12/14/16 17:40 BP 138/58 L 12/14/16 17:40 Pulse Ox 100 12/14/16 06:00 - Labs Result Diagrams: 12/13/16 18:00 12/13/16 18:00 Labs: Laboratory Results - last 24 hr 12/14/16 17:45 Troponin I 0.10 D Assessment & Plan - Assessment and Plan (Free Text) Assessment: 81 yo male with fevers up to 102.7 F, recent treatment for pneumonia with meropenem and doxycycline discharged on 12/10/2016, and finding of a distended gallbladder and cholelithiasis. Started on Zosyn for antibiotic coverage. On prior hospitalization, no positive cultures. No other recent hospitalizations within the [facility] system. He is an extremely poor historian. Imaging studies showing distended gallbladder. Continuing on Zosyn alone for now. There are still signs of moderate bilateral pleural effusions on the CT scan. Possible HIDA scan to be performed. Surgery currently evaluating at this time.
--- NOTE | 2016-12-14 21:14 | CARD ---
APPROVED REPORT EKG Measurement Heart [id number] <Conclusion> Sinus tachycardia Possible Left atrial enlargement Left ventricular hypertrophy with repolarization abnormality Consider anterior ischemia Abnormal ECG
--- NOTE | 2016-12-14 22:44 | CON ---
DATE: 12/14/2016 HISTORY OF PRESENT ILLNESS: He is seen on the floor with the surgical pathologist and discussed. The patient is an 81-year-old on chronic dialysis through catcher in the right chest, has abdominal pain apparently that is now resolved, 138 pounds and on multiple medications including Apresoline, Coreg, Lipitor, vitamins, Plavix, and aspirin. LABORATORY DATA: Showing a white count of 9, hemoglobin of 10.5. Coags a little bit off. Troponin is elevated at 0.26. ALT at 57. PAST MEDICAL HISTORY: Reviewed. Ultrasound showed some stone slugged with the normal common duct. CAT scan confirms dilated gallbladder, thick walled, but significant evidence of back pressure with bilateral pleural effusions with compressive atelectasis and dilated vena cava and portal venous system. PHYSICAL EXAMINATION: There is no pain. There is no tenderness. No guarding or rebound. This patient is at high risk for any surgical intervention and quite frankly I do not think that this is an acute cholecystitis. We will follow without imminent surgical plans for intervention. Paul Perez MD
--- NOTE | 2016-12-15 00:45 | PN ---
DATE: 12/14/2017 SUBJECTIVE: The patient is seen and examined on the bedside, looking comfortable. was sitting on the bedside also. No nausea, vomiting, or diarrhea. No hematuria, no hematochezia. No headache. No dizziness. No chest pain. No palpitation. PHYSICAL EXAMINATION: VITAL SIGNS: Temperature 98.4, pulse of 79, blood pressure 138/58, respiratory rate 20. HEENT: Head is normocephalic and atraumatic. Eyes; PERRLA. Extraocular muscles intact. Conjunctivae clear. Nose is patent. Mucous membranes moist. NECK: Supple. No carotid bruit, JVD, or thyromegaly. CHEST: Bilaterally symmetrical. HEART: S1 and S2 positive. LUNGS: Clear to auscultation. ABDOMEN: Soft. Bowel sounds positive. No organomegaly. EXTREMITIES: No edema. No cyanosis. NEUROLOGIC: The patient is awake and alert. Moving all 4 extremities. No focal deficit. MEDICATIONS: Hydralazine, Coreg, Lipitor, Nephro Christiano, PhosLo, Plavix, Zosyn. LABORATORY DATA: White blood cells 7.5, hemoglobin 10.5, hematocrit 32.3, and platelets 138. Sodium 138, potassium 4.2, BUN 17, creatinine 2.5 and glucose 162. ASSESSMENT AND PLAN: Mr. Eileen Garcia, an 81 years old male with hypochloremia, renal insufficiency, hyperglycemia, abnormal liver function test. Troponin positive but trending down. Anemia, proteinuria, glycosuria, hematuria, urinary tract infection. Planned for CAT scan of abdomen and pelvis. His bladder wall is significantly thickened, correlate clinically for cystitis and to exclude underlying lesion, moderate bilateral effusions, cholelithiasis, notable is a distended gallbladder, rule out cholecystitis. The patient is approved to go for HIDA scan and because of the weekend, they cannot do that. Gastrointestinal and deep venous thrombosis prophylaxis. Getting antibiotics. Feeling better. Getting Zosyn and also Plavix. Lipitor for hypercholesterolemia. We will followup. Karla Singh MD
--- NOTE | 2016-12-15 04:26 | CON ---
DATE: 12/13/2016 LOCATION: The patient in Room 268, Bed 1. REASON FOR CONSULTATION: The patient has coronary artery disease, history of CABG, and renal failure. HISTORY OF PRESENT ILLNESS: The patient is an 81 year male who has been on dialysis due to renal failure since 12/2015 while having dialysis when he suddenly developed chills. The patient denied any chest pain, shortness of breath, or palpitations associated with that episode. The patient received 3 hours of dialysis. Patient is also known to have hypertension and hypercholesterolemia. The patient had CABG in 1989 and he says that in 12/2015, when he was going on dialysis, he had a cardiac catheterization at [facility]. He was told that his bypasses are open. He follows with Dr. Merchant who is a raw stock machine loader at [facility], he sees him regularly. The patient is also known to have diabetes mellitus since 1989. PAST MEDICAL HISTORY: Positive for CVA, end stage renal failure on dialysis, diabetes mellitus, hypertension, hypercholesterolemia, coronary artery disease status post CABG in 1989, cardiac catheterization in 12/2015 at [facility] by Dr. Merchant and he was told that bypasses are open. PERSONAL HISTORY: Denies smoking, denies drinking. ALLERGIES: THE PATIENT DENIES ANY ALLERGIES. HOME MEDICATIONS: The patient was on hydralazine, Coreg, PhosLo, Plavix, and Lipitor. REVIEW OF SYSTEMS: All the systems are reviewed. Positive mentioned in the history, otherwise negative. PHYSICAL EXAMINATION: VITAL SIGNS: Blood pressure 151/74, repeat blood pressure 130/60, respirations 18, pulse 79, temperature 97.5. HEENT: Head is normocephalic. Eyes, pupils normal. Conjunctiva slightly pale. NECK: JVP low. Carotids equal. THORAX: AP diameter normal. LUNGS: No significant rales. CARDIOVASCULAR: S1, S2. ABDOMEN: Soft, nontender. No organomegaly. Bowel sounds normal. EXTREMITIES: Patient has chronic venous stasis changes, but there is no edema. No clubbing, no cyanosis. LABORATORY DATA: Showed WBC 7.5, hemoglobin 10.5, hematocrit 32.3, platelets 138. Sodium 138, potassium 4.2, BUN 17, creatinine 2.5, AST 41, ALT 57, troponin 0.26. Total protein and albumin normal. DIAGNOSTIC DATA: The patient's chest x ray showed small bilateral pleural effusions. CT of chest, abdomen and pelvis showed bladder wall is significantly thickened, correlates clinically for cystitis, moderate bilateral pleural effusions, cholelithiasis, distended gallbladder, also has patient with questionable thyroid nodule. DIAGNOSES: Sudden onset of chills suggestive of a refractory process, rule out urinary tract infection, rule out cholecystitis, diabetes mellitus, end stage renal failure on dialysis, hypertension, hyperlipidemia, coronary artery disease, status post coronary artery bypass surgery in 12/2015, cardiac catheterization as per patient showed bypasses are open. He sees Dr. Merchant, raw stock machine loader at [facility] regularly. Slightly elevated troponin. PLAN: The patient did not get any chest pain, although he has slightly elevated troponin and it can be false elevation due to renal failure. We will follow the repeat troponin. The patient does not have any chest pain. The patient is seen by surgery. The patient is on hydralazine 50 mg p.o. daily, carvedilol 25 mg p.o. daily, Lipitor 40 mg p.o. daily, Plavix 75 mg daily. The patient has fluid overload with bilateral pleural effusions for which he will need dialysis. We will continue to follow. The patient is being evaluated by surgery. HIDA scan has been ordered already. We will repeat the troponin today and tomorrow morning. We will continue to follow with you. Trinidad Velazquez MD
[2016-12-15] MEDS: Piperacillin/Tazobact 2.25gm 2.25 GM/100 ML BAG IVPB SCH ×3 (05:07→18:44)
--- NOTE | 2016-12-15 07:31 | CON ---
DATE: 12/14/2016 PULMONARY CONSULTATION REFERRING PHYSICIAN: Dr. Singh. REASON FOR CONSULTATION: Status post chills, shortness of breath, end of the dialysis. HISTORY OF PRESENT ILLNESS: This is a 81-year-old gentleman who was recently discharged from the hospital, has multiple medical issues including hypertension, hyperlipidemia, renal failure, dialysis dependent, may have sleep apnea syndrome, history of CVA in the past. Was having dialysis, had fever and chills. No nausea, no vomiting, no chest pain. No leg pain,no leg swelling. PAST MEDICAL HISTORY: Renal failure, dialysis dependent, diabetes, history of stroke, hyperlipidemia, may have sleep apnea syndrome. FAMILY HISTORY: No significant cardiopulmonary disease reported. SOCIAL HISTORY: Nonsmoker, nondrinker. ALLERGIES: NONE KNOWN. MEDICATIONS: He is on hydralazine 50 mg daily, Coreg 25 mg daily, Lipitor 40 mg daily, Nephro-Christiano daily, PhosLo with the meals, Plavix 75 mg daily, Zosyn 2.25 g IV q. 6 hours. REVIEW OF SYSTEMS: Presently, there is no headache, no rhinitis. Has some cough and shortness of breath. No chest pain. No nausea, no vomiting. No diarrhea, leg pain or leg swelling. After dialysis, felt a chill. PHYSICAL EXAMINATION GENERAL: No acute distress. VITAL SIGNS: Temperature is 98, T max yesterday was 102.7, heart rate is 80, respiratory rate is 20, blood pressure 138/58. HEENT: Moist mucous membranes. Crowded airway. Mallampati score is 4. NECK: Supple. No JVD. LUNGS: Has a fair airflow with few rhonchi. HEART: S1 and S2. ABDOMEN: Soft, nontender. No organomegaly. EXTREMITIES: There is no edema. NEUROLOGICAL: Awake, alert, follows simple commands.. LABORATORY DATA: Shows hemoglobin 10.5, hematocrit 32.3, WBC is 7.5, platelets are 138. INR 1.14. PTT 42. VBG showed pH 7.41, pCO2 52, O2 47. Sodium 138, potassium 4.2, chloride 97, bicarbonate 29, BUN 17, creatinine 2.5, glucose 162, calcium 8.8, magnesium 1.8, AST 41, ALT 57, alk phos is 171, troponin is 0.26, albumin is 3.6. Urinalysis shows RBC too numerous to count, WBC 225. Microbiology: Blood culture, so far there is no growth. Had a CAT scan of the abdomen and pelvis done yesterday which shows bladder wall is significantly thickened, correlate clinically, rule out cystitis, moderate bilateral effusion, cholelithiasis, and notably distended gallbladder. IMPRESSION AND PLAN: Sepsis, rule out Lyme sepsis, could be urinary tract infection, hyperlipidemia, diabetes, history of CVA, started on broad spectrum antibiotics, covering Gram negative, Gram positive organisms, keep head 45 degrees, gastric prophylaxis, deep vein thrombosis prophylaxis, aspiration precautions, sleep apnea precaution, out of bed to chair. Followup labs in the morning. Thank you and we will follow with you. Trinidad Day MD
--- NOTE | 2016-12-15 08:02 | CP.PCM.PN ---
Subjective - Date & Time of Evaluation Date of Evaluation: 12/15/16 Time of Evaluation: 07:15 - Subjective Subjective: General Surgery Dr. Brady Pt S&E @bedside. NAEO. denies abd pain, F/C, N/V. tolerating diet. Objective - Vital Signs/Intake and Output Vital Signs (last 24 hours): Temp Pulse Resp BP Pulse Ox 98.3 F 80 20 143/68 100 12/15/16 05:29 12/15/16 05:29 12/15/16 05:29 12/15/16 05:29 12/15/16 05:29 Intake and Output: 12/15/16 12/15/16 06:59 18:59 Intake Total 440 Balance 440 - Medications Medications: Current Medications Atorvastatin Calcium (Lipitor) [address] [facility] Last Admin: 12/14/16 11:20 Dose: 40 mg Calcium Acetate (Phoslo) 1,[address] [facility] Last Admin: 12/14/16 19:09 Dose: Not Given Carvedilol (Coreg) [address] [facility] Last Admin: 12/14/16 11:20 Dose: 25 mg Clopidogrel Bisulfate (Plavix) [address] [facility] Last Admin: 12/14/16 11:20 Dose: 75 mg Home Med (Home Med) [address] [facility] Last Admin: 12/14/16 19:09 Dose: Not Given Hydralazine HCl (Apresoline) [address] [facility] Last Admin: 12/14/16 11:19 Dose: 50 mg Piperacillin Sod/Tazobactam Sod (Zosyn 2.25 Gm In 0.9% 100 Ml) 2.25 gm in 100 mls @ 100 mls/hr IVPB Q6 [facility] PRN Reason: Protocol Last Admin: 12/15/16 05:07 Dose: 100 mls/hr Vitamin B Complex/Vit C/Folic Acid (Nephro-Christiano) [address] [facility] Last Admin: 12/14/16 11:20 Dose: 1 tab - Labs Labs: PT 12.3 Seconds (9.9-11.8) H 12/13/16 18:50 INR 1.14 (0.93-1.08) H 12/13/16 18:50 APTT 42.0 Seconds (23.7-30.8) H 12/13/16 18:50 - Constitutional Appears: Non-toxic, No Acute Distress - Head Exam Head Exam: NORMAL INSPECTION - Eye Exam Eye Exam: Normal appearance - ENT Exam ENT Exam: Mucous Membranes Moist - Respiratory Exam Respiratory Exam: NORMAL BREATHING PATTERN. absent: Accessory Muscle Use, Respiratory Distress - Cardiovascular Exam Cardiovascular Exam: absent: Bradycardia, Tachycardia - GI/Abdominal Exam GI & Abdominal Exam: Soft. absent: Distended, Guarding, Tenderness, Rebound - Extremities Exam Extremities Exam: Normal Inspection - Neurological Exam Neurological Exam: Alert, Awake, Oriented x3 - Psychiatric Exam Psychiatric exam: Normal Affect, Normal Mood - Skin Skin Exam: Dry, Intact, Normal Color, Warm Assessment and Plan - Assessment and Plan (Free Text) Assessment: 81 y/o M w/ cholelithiasis - f/u HIDA - continue medical management Pt discussed w/ Dr. Jose Antonio Chery DO PGY2
[2016-12-15] MEDS ORDERED: Vancomycin 500 mg Inj IVPB SCH (10:15)
[2016-12-15] MEDS ORDERED: Vancomycin 1gm in NS 250ml 1 GM/250 ML BAG IVPB ONE (10:15)
[2016-12-15] MEDS: Multivitamin Vitamin B Complex (Nephro-Vite) Tab PO SCH (10:52)
[2016-12-15] MEDS: FIDAXOMICIN 200 MG PO SCH ×2 (10:53→18:36)
[2016-12-15 11:00] LABS: BASO # 0.09 K/mm3 (0.0-2.0); BASO % 1.2 % (0.0-3.0); EOS # 0.4 (0.0-0.7); EOS % 4.8 % (1.5-5.0); GRAN # 4.34 (1.4-6.5); GRAN % 58.9 % (50.0-68.0); HEMATOCRIT 28.2 % (42.0-52.0); LYMPH # 1.9 (1.2-3.4); LYMPH % 26.1 % (22.0-35.0); MEAN CELL VOLUME 70.9 fl (80.0-105.0); MEAN CORPUSCULAR HEMOGLOBIN 22.9 pg (25.0-35.0); MEAN CORPUSCULAR HGB CONC 32.3 g/dl (31.0-37.0); MONO # 0.7 (0.1-0.6); PLATELET COUNT 157 10^3/uL (120.0-450.0); RED CELL DISTRIBUTION WIDTH 17.2 % (11.5-14.5); WHITE BLOOD COUNT 7.4 10^3/ul (4.5-11.0)
[2016-12-15 11:10] LABS: ALB/GLOB RATIO 0.8 (1.1-1.8); BILIRUBIN,TOTAL 0.5 mg/dL (0.2-1.3); CALCIUM 8.1 mg/dL (8.4-10.5); MAGNESIUM 1.9 mg/dL (1.7-2.2); PHOSPHOROUS 4.8 mg/dL (2.5-4.5); POTASSIUM 3.9 mmol/L (3.6-5.0); TOTAL PROTEIN 6.2 g/dL (5.8-8.3)
--- NOTE | 2016-12-15 13:47 | CP.PCM.CON ---
History of Present Illness - History of Present Illness History of Present Illness: Initial Nephrology Consultation Note Assessment: critical gram + cocci sepsis {presume permacath as source until unless proven otherwise} cholelithiasis, urinary bladder wall thickening, pleural effusions on imaging Diabetic chronic Kidney Disease (E11.22) Hypertensive Chronic Kidney Disease (I12.0) End stage renal disease (N18.6) dependence on hemodialysis (Z99.2) (TTS) via permacath Anemia (D64.9), Hyperphosphatemia (E83.39), Secondary Hyperparathyroidism (E21.1 ), HTN (I12.0) Plan: No acute need for dialysis today. Will plan for dialysis tomorrow. Continue with Nephrovite 1 tab/day. PRBC as needed for anemia. On MARLENE as aransep 25 mcg weekly, last Hb 9.1 Continue with phoslo Continue with hectorol 1 mcg with dialysis. Last PTH level 384. BP control with meds as ordered. Patient not on RAAS sue. He is known to have labile BP which can drop precipitously during HD Glycemic control, Dialysis consistent diet Further work up/management as per primary team Dose meds/antibiotics for ESRD status. Avoid fleets enema/magnesium based laxatives. appreciate ID, surgery input. will also dose with vancomycin today and request IR to change permacath over guidewire. Pt will also benefit from eval for bladder wall thickening seen on CT and also has microscopic hematuria Thanks for allowing me to participate in care of your patient. Will follow patient with you. Please call if any Qs. d/w primary team Dr Robert Prieto Office: [phone] Chief Complaint; sick during dialysis HPI: Pt is a 81 y/o M with hx of ESRD on hemodialysis (TTS) via permacath, last dialysis thursday, chronic anemia, hyperphosphatemia, secondary hyperparathyroidism, Diabetes Mellitus, hypertension presented with complaints of fever and chills during dialysis. he was recent hospitalized with similar complaints and treated for pneumonia and d/c to [facility]. his symptoms recurred last thursday and he was re-admitted with sepsis. also found to have gall stone and urinary bladder wall thickening. He feels better at this time. Denies chest pain, palpitation, shortness of breath, leg swelling ROS: Constitutional Symptoms: had fever/chills during dialysis Eyes: denies change in vision, denies watery eyes, denies double vision Ears/Nose/Mouth/Throat: Denies Abnormal Taste. No Bad breath or Bad Taste. Cardiovascular: No chest pain. There is no shortness of breath. No palpitations. Pulmonary: No shortness of breath or cough. Gastrointestinal: denies abdominal pain at present No nausea. No vomiting. Denies change in bowel habits. Denies Bleeding Genitourinary: makes small urine. No associated pain or blood. Neurological: Denies headaches. No dizziness. Denies loss of balance. Denies weakness, denies tingling/numbness Dermatological: No Rash or Bruising or ulcers. Psychiatric: Denies Anxiety. No depression. Denies hallucinations. Rheumatological: No joint pain. Denies Joint swelling Endocrine: c/o tiredness. c/o Fatigue and denies Heat/Cold Intolerance. All other negative. Physical Examination: General Appearance: Comfortable, in no acute respiratory distress, co-operative . Vitals reviewed and noted as below Head; Atraumatic, normocephalic ENT: no ulcers no thrush. Tongue is midline. Oropharynx: no rash or ulcers. EYES: Pupils are equal, round and reactive to light accommodation. Eye muscles and extraocular movement intact. Sclera is anicteric. Neck; supple no lymphadenopathy, no thyromegaly or bruit Lungs: Normal respiratory rate/effort. Breath sounds bilateral equal and clear but somewhat decreased at bases Heart: Normal rate. s1s2 normal. No rub or gallop. Extremities: no edema. No varicose veins. chronic hyperpigmented changes in legs skin Neurological: Patient is alert, awake and oriented to person, place and time. No focal deficit. Strength bilateral appropriate and equal Skin: Warm and dry. Normal turgor. No rash. Palpitation: Normal elasticity for age Abdomen: Abdomen is soft. Bowel sounds +. There is no abdominal tenderness, no guarding/rigidity or organomegaly Psych: normal insight and normal affect/mood MSK: no joint tenderness or swelling. Digits and nails normal, no deformity : kidney or bladder not palpable Access: permacath, no tunnel tenderness Labs/imaging reviewed. Past medical history, past surgical history, family history, social history, allergy reviewed and noted as below Family Hx: no hx of CKD. Non contributory work up: Blood cx drawn during hD + for GPC urine cx neg Past Patient History - Infectious Disease Hx of Infectious Diseases: None - Past Social History Smoking Status: Never Smoked - CARDIAC Hx Hypertension: Yes - PULMONARY Hx Respiratory Disorders: Yes Hx Pneumonia: Yes - NEUROLOGICAL HX Cerebrovascular Accident: Yes (December 2015) - HEENT Hx HEENT Problems: Yes - RENAL Hx Dialysis: Yes () - ENDOCRINE/METABOLIC Hx Diabetes Mellitus Type 2: Yes - HEMATOLOGICAL/ONCOLOGICAL Hx Blood Disorders: No - MUSCULOSKELETAL/RHEUMATOLOGICAL Hx Falls: Yes - GASTROINTESTINAL Hx Gastrointestinal Disorders: Yes HX Swallowing Problems: Yes - PSYCHIATRIC Hx Substance Use: No - SURGICAL HISTORY Other/Comment: dialysis access - ANESTHESIA Hx Anesthesia: Yes Hx Anesthesia Reactions: No Meds Allergies/Adverse Reactions: Allergies Allergy/AdvReac Type Severity Reaction Status Date / Time No Known Allergies Allergy Verified 09/02/16 18:34 - Medications Medications: Current Medications Atorvastatin Calcium (Lipitor) 40 mg PO DAILY [facility] Last Admin: 12/15/16 10:51 Dose: 40 mg Calcium Acetate (Phoslo) 1,334 mg PO WM [facility] Last Admin: 12/15/16 12:03 Dose: 1,334 mg Carvedilol (Coreg) 25 mg PO DAILY [facility] Last Admin: 12/15/16 10:52 Dose: 25 mg Clopidogrel Bisulfate (Plavix) 75 mg PO DAILY [facility] Last Admin: 12/15/16 10:52 Dose: 75 mg Home Med (Home Med) 1 unit PO BID [facility] Last Admin: 12/15/16 10:53 Dose: Not Given Hydralazine HCl (Apresoline) 50 mg PO DAILY [facility] Last Admin: 12/15/16 10:51 Dose: 50 mg Piperacillin Sod/Tazobactam Sod (Zosyn 2.25 Gm In 0.9% 100 Ml) 2.25 gm in 100 mls @ 100 mls/hr IVPB Q6 [facility] PRN Reason: Protocol Last Admin: 12/15/16 12:03 Dose: 100 mls/hr Vitamin B Complex/Vit C/Folic Acid (Nephro-Christiano) 1 tab PO DAILY [facility] Last Admin: 12/15/16 10:52 Dose: 1 tab Results - Vital Signs Recent Vital Signs: Last Vital Signs Temp 98.6 F 12/15/16 11:53 Pulse 75 12/15/16 11:53 Resp 20 12/15/16 11:53 BP 145/68 12/15/16 11:53 Pulse Ox 100 12/15/16 05:29 - Labs Result Diagrams: 12/15/16 10:50 12/15/16 10:50 Labs: Laboratory Results - last 24 hr 12/14/16 12/15/16 12/15/16 17:45 06:30 10:50 WBC 7.4 RBC 3.98 Hgb 9.1 L Hct 28.2 L MCV 70.9 L MCH 22.9 L MCHC 32.3 RDW 17.2 H Plt Count 157 Gran % 58.9 Lymph % (Auto) 26.1 [place] % (Auto) 9.0 H Eos % (Auto) 4.8 Baso % (Auto) 1.2 Gran # 4.34 Lymph # 1.9 [place] # 0.7 H Eos # 0.4 Baso # 0.09 Sodium Potassium Chloride Carbon Dioxide Anion Gap BUN Creatinine Est GFR ( Amer) Est GFR (Non-Af Amer) Random Glucose Calcium Phosphorus Magnesium Total Bilirubin AST ALT Alkaline Phosphatase Troponin I 0.10 D 0.09 Total Protein Albumin Globulin Albumin/Globulin Ratio 12/15/16 10:50 WBC RBC Hgb Hct MCV MCH MCHC RDW Plt Count Gran % Lymph % (Auto) [place] % (Auto) Eos % (Auto) Baso % (Auto) Gran # Lymph # [place] # Eos # Baso # Sodium 138 Potassium 3.9 Chloride 101 Carbon Dioxide 26 Anion Gap 15 BUN 27 H Creatinine 5.2 H Est GFR ( Amer) 13 Est GFR (Non-Af Amer) 11 Random Glucose 175 H Calcium 8.1 L Phosphorus 4.8 H Magnesium 1.9 Total Bilirubin 0.5 AST 25 ALT 42 Alkaline Phosphatase 84 Troponin I Total Protein 6.2 Albumin 2.7 L Globulin 3.5 Albumin/Globulin Ratio 0.8 L
--- NOTE | 2016-12-15 14:53 | NM ---
PROCEDURE: Nuclear Medicine Hepatobiliary Scan HISTORY: cholelithiasis COMPARISON: None available. TECHNIQUE: 5.3 mCi of technetium 99m Mebrofenin was administered intravenously. Planar images of the abdomen were obtained at 5 min intervals to 60 mins. Delayed images were also obtained. FINDINGS: LIVER: Timely and homogenous uptake. COMMON BILE DUCT: identified at 15 mins. GALLBLADDER: identified at 30 mins. SMALL BOWEL: Identified at 30 mins. IMPRESSION: Normal Hepatobiliary Scan. The cystic duct is patent.
--- NOTE | 2016-12-15 19:03 | PN ---
DATE: 12/15/2016 LOCATION: Patient in Room 268, Bed 1. REASON FOR CONSULTATION: Followup with coronary artery disease, history of COPD, renal failure. Patient while on dialysis had fever and chills. SUBJECTIVE: Patient denies any chest pain, shortness of breath, palpitation. Does not have any chills at present. PHYSICAL EXAMINATION VITAL SIGNS: Blood pressure 145/68, respiratory rate 20, pulse 75, temperature 98.6. HEENT: Normocephalic. Eyes: Pupils normal. Conjunctivae slightly pale. NECK: JVP low. Carotids equal. THORAX: AP diameter normal. LUNGS: No significant rales. CARDIOVASCULAR: S1 and S2. ABDOMEN: Soft. No tenderness. No organomegaly. EXTREMITIES: No clubbing. No cyanosis. LABORATORY DATA: WBC 7.4, hemoglobin 9.1, hematocrit 98.2, platelets 157. Sodium 138, potassium 3.9, BUN 27, creatinine 5.2. Random glucose 175, calcium 8.1, phosphorus 4.8. Magnesium 1.9. AST and ALT normal. Total protein 6.2, albumin 2.7. Troponin first one was 0.26 but subsequently two showed 0.10 and 0.09. DIAGNOSES: Onset of chills, rule out cholecystitis, diabetes mellitus, end stage renal failure on dialysis, hypertension, hyperlipidemia, coronary artery disease, status post coronary artery bypass surgery in 12/2015. Patient has bypass surgery that was in 1989. Patient had cardiac catheterization in 2016 at [facility] with Dr. Merchant and as per patient it was showing the bypasses are open. PLAN: Only the one troponin elevated on admission, is probably a false elevation. You can get troponin elevation with renal failure. Patient is asymptomatic. No chest pain. Not short of breath also. Cardiac cath last year showed bypass was open. Patient's chest x-ray showed some bilateral pleural effusion, which is fluid overload for which Nephrology is following patient. He will undergo dialysis. Plan is patient is going to have a nuclear scan today, HIDA scan to rule out cholecystitis. An abdominal CAT scan had shown bladder wall is significantly thickened, correlate clinically prostatitis or to exclude underlying lesion, moderate bilateral pleural effusions, cholelithiasis, distending gallbladder. So, the patient is having a HIDA scan today. In the meantime, patient will stay on Coreg 25 mg daily, hydralazine 50 mg daily, atorvastatin 40 mg daily, Plavix 75 mg daily, piperacillin/tazobactam 2.25 g IV q. 6 hours. We will follow with you. Trinidad Velazquez MD
--- NOTE | 2016-12-15 21:16 | PN ---
PULMONARY PROGRESS NOTE DATE: 12/15/2016 REFERRING PHYSICIAN: Dr. Singh. SUBJECTIVE: He is lying in the bed, feels better. No cough or short of breath. No chest pain, no nausea, no vomiting, no diarrhea, no leg pain, no leg swelling. OBJECTIVE: GENERAL: In no acute distress. VITAL SIGNS: Temperature is 98, heart rate is 75, respiratory is 20 and blood pressure 145/68. HEENT: Moist mucous membranes. No oral thrush. NECK: Supple. No JVD. LUNGS: Fair airflow with few rhonchi. HEART: S1 and S2. ABDOMEN: Soft and nontender. No organomegaly. EXTREMITIES: There is no edema. NEUROLOGIC: Awake and alert. Follows simple commands. MEDICATIONS: He is on hydralazine 50 mg p.o. daily, Coreg 25 mg daily., Lipitor 40 mg daily, Nephro vitamins daily, PhosLo with the meals, Plavix 75 mg daily, and Zosyn 2.25 g IV q 6 hours. LABORATORY DATA: Shows hemoglobin 9.1, hematocrit 28.2, WBC 7.4, platelet count is 157. Sodium 138, potassium 3.9, chloride 101, bicarbonate is 26, BUN 27, creatinine 5.2, glucose is 175, calcium is 8.1, phosphorus is 4.8. AST 25, ALT 52, alkaline phosphatase is 84 and albumin is 2.7. Microbiology: Blood culture, one of two gram-positive cocci. He had a HIDA scan which is negative for cystic duct obstruction. IMPRESSION AND PLAN: Bacteremia, sepsis probably related to line, hyperlipidemia, diabetes, history of cerebrovascular accident, cholelithiasis, may have sleep apnea syndrome. Continue antibiotics, keep head elevated at 45 degrees, infectious disease followup, gastric prophylaxis, sleep apnea precaution. If persistent bacteremia, may need to change the line. Thank you, and we will follow with you. Trinidad Day MD
--- NOTE | 2016-12-15 21:48 | CP.PCM.PN ---
Subjective - Date & Time of Evaluation Date of Evaluation: 12/15/16 Time of Evaluation: 19:00 - Subjective Subjective: Infectious Disease Follow Up: December 15, 2016 81 yo male with recent hospitalization to [facility] for pneumonia and fevers of at least 101.0 F. The patient with complaints of fevers and chills now. States that episodes started shortly after being discharged from the hospital. Fever up 102.7 F on triage in the ER. He was treated with Doxycycline and Meropenem in the hospital for at least a 4 day course. The patient I believe was sent home with Levaquin for treatment. Imaging studies showing a distended gallbladder and cholelithiasis. HIDA negative Gram positive cocci in one blood culture. Afebrile. Objective - Vital Signs/Intake and Output Vital Signs (last 24 hours): Temp Pulse Resp BP Pulse Ox 96.9 F L 75 19 138/77 100 12/15/16 17:43 12/15/16 17:43 12/15/16 17:43 12/15/16 17:43 12/15/16 05:29 - Medications Medications: Current Medications Atorvastatin Calcium (Lipitor) 40 mg PO DAILY [facility] Last Admin: 12/15/16 10:51 Dose: 40 mg Calcium Acetate (Phoslo) 1,334 mg PO WM [facility] Last Admin: 12/15/16 18:44 Dose: 1,334 mg Carvedilol (Coreg) 25 mg PO DAILY [facility] Last Admin: 12/15/16 10:52 Dose: 25 mg Clopidogrel Bisulfate (Plavix) 75 mg PO DAILY [facility] Last Admin: 12/15/16 10:52 Dose: 75 mg Home Med (Home Med) 1 unit PO BID [facility] Last Admin: 12/15/16 18:36 Dose: Not Given Hydralazine HCl (Apresoline) 50 mg PO DAILY [facility] Last Admin: 12/15/16 10:51 Dose: 50 mg Piperacillin Sod/Tazobactam Sod (Zosyn 2.25 Gm In 0.9% 100 Ml) 2.25 gm in 100 mls @ 100 mls/hr IVPB Q6 [facility] PRN Reason: Protocol Last Admin: 12/15/16 18:44 Dose: 100 mls/hr Vitamin B Complex/Vit C/Folic Acid (Nephro-Christiano) 1 tab PO DAILY [facility] Last Admin: 08/28/17 10:52 Dose: 1 tab - Labs Labs: 12/15/16 10:50 12/15/16 10:50 PT 12.3 Seconds (9.9-11.8) H 12/13/16 18:50 INR 1.14 (0.93-1.08) H 12/13/16 18:50 APTT 42.0 Seconds (23.7-30.8) H 12/13/16 18:50 - Constitutional Appears: Non-toxic, No Acute Distress, Chronically Ill - Head Exam Head Exam: ATRAUMATIC, NORMOCEPHALIC - Eye Exam Eye Exam: EOMI, PERRL Pupil Exam: NORMAL ACCOMODATION, PERRL - ENT Exam ENT Exam: Mucous Membranes Moist, Normal External Ear Exam, TM's Normal Bilaterally - Neck Exam Neck Exam: Full ROM, Normal Inspection - Respiratory Exam Respiratory Exam: Clear to Ausculation Bilateral, NORMAL BREATHING PATTERN. absent: Rales, Rhonchi, Wheezes - Cardiovascular Exam Cardiovascular Exam: REGULAR RHYTHM, RRR, +S1, +S2 - GI/Abdominal Exam GI & Abdominal Exam: Soft, Normal Bowel Sounds. absent: Distended, Tenderness - Extremities Exam Extremities Exam: Full ROM, Normal Inspection - Neurological Exam Neurological Exam: Alert, Awake, CN II-XII Intact, Oriented x3 - Psychiatric Exam Psychiatric exam: Normal Affect, Normal Mood - Skin Skin Exam: Intact, Normal Color Assessment and Plan - Assessment and Plan (Free Text) Assessment: 81 yo male with fevers up to 102.7 F, recent treatment for pneumonia with meropenem and doxycycline discharged on 12/10/2016, and finding of a distended gallbladder and cholelithiasis. Started on Zosyn for antibiotic coverage. On prior hospitalization, no positive cultures. No other recent hospitalizations within the [facility] system. He is an extremely poor historian. Imaging studies showing distended gallbladder. Continuing on Zosyn alone for now. There are still signs of moderate bilateral pleural effusions on the CT scan. HIDA negative. Surgery evaluating at this time. With the positive blood culture with gram positive cocci in one bottle, there are concerns of line infection. FISH is NOT showing Staph Aureus or coagulase negative staph at this time. Awaiting final culture results. Continue on zosyn only for now. Monitor fever trend. Thank you for allowing me to participate in the care of the patient, we will follow with you.
[2016-12-16] MEDS: Piperacillin/Tazobact 2.25gm 2.25 GM/100 ML BAG IVPB SCH ×4 (00:09→17:44)
--- NOTE | 2016-12-16 01:37 | PN ---
DATE: SUBJECTIVE: Patient is a 81-year-old male. Patient is examined on the bedside. was sitting on the bedside also. Has excellent big bowel movement and got clean up. No nausea, vomiting, diarrhea. No hematuria or hematochezia. PHYSICAL EXAMINATION VITAL SIGNS: Temperature 98.6, blood pressure 145/68, respiratory rate 20, pulse oxymetry 75. HEENT: Head, normocephalic and atraumatic. Eyes, PERRLA. Extraocular muscles intact. Conjunctivae clear. Nose patent. Mucous membranes are moist. NECK: Supple. No carotid bruit, JVD or thyromegaly. CHEST: Bilaterally symmetrical. HEART: S1 and S2 positive. LUNGS: Clear to auscultation. ABDOMEN: Soft. Bowel sounds positive. No organomegaly. EXTREMITIES: No edema. No cyanosis. NEUROLOGIC: The patient is awake and alert. Moving all four extremities. No focal deficits. LABORATORY DATA: White blood cells of 7.4, hemoglobin of 9.1, hematocrit 28.2, platelets 157. Sodium 138, potassium 3.9, BUN 25, creatinine 5.2. Glucose 175, troponin 0.26, 0.10, 0.09. MEDICATIONS: Hydralazine, Coreg, Lipitor, folic acid, Plavix, Zosyn. ASSESSMENT AND PLAN: Mr. Eileen Garcia is a 81-year-old male with multiple medical problem, cholecystitis, cholelithiasis, surgical consent called with Dr. Brady. HIDA scan is negative. Then according to surgeon, no need of surgery this time. End-stage renal disease on hemodialysis, seen by oyster grader. Hypertension, hypercholesterolemia, coronary artery disease, status post coronary artery stent, bypass. According to professional fee coder, increased troponin at admission was maybe falsely elevated. Bilateral pleural effusion, which maybe due to fluid overload. Nephrology is on the case. Maybe after dialysis, things will get better. PLAN: Patient is willing to have a nuclear scan today, HIDA to rule out cholecystitis. HIDA scan is done is negative. Reviewed Dr. Velazquez's notes. Reviewed with Dr. Robert Prieto, oyster grader's notes. I appreciated Dr. Brady's input. Patient had gram-positive cocci sepsis, urinary bladder wall thickening, diabetic chronic kidney disease, hypertension, hyperphosphatemia, secondary hyperparathyroidism, hypertension, GI and DVT prophylaxis. Repeat labs. Discussion done with patient's and nursing staff. Karla Singh MD DELILAH
[2016-12-16] MEDS: FIDAXOMICIN 200 MG PO SCH ×2 (09:27→17:40)
[2016-12-16] MEDS: Multivitamin Vitamin B Complex (Nephro-Vite) Tab PO SCH (09:27)
[2016-12-16 10:54] LABS: BASO # 0.05 K/mm3 (0.0-2.0); BASO % 0.7 % (0.0-3.0); EOS # 0.3 (0.0-0.7); EOS % 4.2 % (1.5-5.0); GRAN # 4.66 (1.4-6.5); GRAN % 65.3 % (50.0-68.0); LYMPH # 1.6 (1.2-3.4); LYMPH % 21.9 % (22.0-35.0); MEAN CELL VOLUME 70.7 fl (80.0-105.0); MEAN CORPUSCULAR HEMOGLOBIN 22.5 pg (25.0-35.0); MEAN CORPUSCULAR HGB CONC 31.8 g/dl (31.0-37.0); MONO # 0.6 (0.1-0.6); MONO % 7.9 % (1.0-6.0); PLATELET COUNT 169 10^3/uL (120.0-450.0); WHITE BLOOD COUNT 7.1 10^3/ul (4.5-11.0)
[2016-12-16 10:59] LABS: ALB/GLOB RATIO 0.8 (1.1-1.8); BILIRUBIN,TOTAL 0.5 mg/dL (0.2-1.3); PHOSPHOROUS 5.1 mg/dL (2.5-4.5); POTASSIUM 3.8 mmol/L (3.6-5.0); TOTAL PROTEIN 6.4 g/dL (5.8-8.3)
[2016-12-16] MEDS ORDERED: Lidocaine 2% Inj (20ml) ONE ×2 (13:48→15:29)
--- NOTE | 2016-12-16 14:27 | CP.PCM.PN ---
Subjective - Date & Time of Evaluation Date of Evaluation: 12/16/16 Time of Evaluation: 14:23 - Subjective Subjective: Follow up Nephrology Consultation Note Assessment: Stable gram + cocci sepsis {presume permacath as source until unless proven otherwise} cholelithiasis, urinary bladder wall thickening, pleural effusions on imaging Diabetic chronic Kidney Disease (E11.22) Hypertensive Chronic Kidney Disease (I12.0) End stage renal disease (N18.6) dependence on hemodialysis (Z99.2) (TTS) via permacath Anemia (D64.9), Hyperphosphatemia (E83.39), Secondary Hyperparathyroidism (E21.1 ), HTN (I12.0) Plan: Will plan for dialysis today as ordered. Continue with Nephrovite 1 tab/day. UF goal today 3 Kgs PRBC as needed for anemia. On MARLENE as aransep 60 mcg weekly, last Hb 8.9 Continue with phoslo Continue with hectorol 1 mcg with dialysis. Last PTH level 384. BP control with meds as ordered. Patient not on RAAS sue. He is known to have labile BP which can drop precipitously during HD Glycemic control, Dialysis consistent diet Further work up/management as per primary team Dose meds/antibiotics for ESRD status. Avoid fleets enema/magnesium based laxatives. appreciate ID, surgery, input. request IR to change permacath over guidewire. post d/c: cefazolin 2 gram on Thu/ and 3 gram on thursday with HD arranged x 2 weeks (d/w ID) Thanks for allowing me to participate in care of your patient. Please call if any Qs. Pt stable for d/c from renal perspective. d/w primary team Dr Robert Prieto Office: [phone] Chief Complaint; Feel better HPI: Pt is a 81 y/o M with hx of ESRD on hemodialysis (TTS) via permacath, last dialysis thursday, chronic anemia, hyperphosphatemia, secondary hyperparathyroidism, Diabetes Mellitus, hypertension presented with complaints of fever and chills during dialysis. he was recent hospitalized with similar complaints and treated for pneumonia and d/c to [facility]. his symptoms recurred last thursday and he was re-admitted with sepsis. also found to have gall stone and urinary bladder wall thickening. Subjective: He feels better at this time. Denies chest pain, palpitation, shortness of breath, leg swelling ROS: Constitutional Symptoms: had fever/chills during dialysis on thursday, not any more Eyes: denies change in vision, denies watery eyes, denies double vision Ears/Nose/Mouth/Throat: Denies Abnormal Taste. No Bad breath or Bad Taste. Cardiovascular: No chest pain. There is no shortness of breath. No palpitations. Pulmonary: No shortness of breath or cough. Gastrointestinal: denies abdominal pain at present No nausea. No vomiting. Denies change in bowel habits. Denies Bleeding Genitourinary: makes small urine. No associated pain or blood. Neurological: Denies headaches. No dizziness. Denies loss of balance. Denies weakness, denies tingling/numbness Dermatological: No Rash or Bruising or ulcers. Psychiatric: Denies Anxiety. No depression. Denies hallucinations. Rheumatological: No joint pain. Denies Joint swelling Endocrine: had tiredness. had fatigue and denies Heat/Cold Intolerance. All other negative. Physical Examination: General Appearance: Comfortable, in no acute respiratory distress, co-operative . Vitals reviewed and noted as below Head; Atraumatic, normocephalic Lungs: Normal respiratory rate/effort. Breath sounds bilateral equal and clear but somewhat decreased at bases Heart: Normal rate. s1s2 normal. No rub or gallop. Extremities: no edema. No varicose veins. chronic hyperpigmented changes in legs skin Neurological: Patient is alert, awake and oriented to person, place and time. No focal deficit. Strength bilateral appropriate and equal Skin: Warm and dry. Normal turgor. No rash. Palpitation: Normal elasticity for age Abdomen: Abdomen is soft. Bowel sounds +. There is no abdominal tenderness, no guarding/rigidity or organomegaly Psych: normal insight and normal affect/mood MSK: no joint tenderness or swelling. Digits and nails normal, no deformity : kidney or bladder not palpable Access: permacath, no tunnel tenderness Labs/imaging reviewed. Past medical history, past surgical history, family history, social history, allergy reviewed and noted as below Family Hx: no hx of CKD. Non contributory work up: Blood cx drawn during hD + for GPC urine cx neg Objective - Vital Signs/Intake and Output Vital Signs (last 24 hours): Temp Pulse Resp BP Pulse Ox 98.1 F 83 20 117/52 L 100 12/16/16 05:32 12/16/16 05:32 12/16/16 05:32 12/16/16 05:32 12/16/16 05:32 Intake and Output: 12/16/16 12/16/16 06:59 18:59 Intake Total 320 Output Total 200 Balance 120 - Medications Medications: Current Medications Atorvastatin Calcium (Lipitor) 40 mg PO DAILY [facility] Last Admin: 12/16/16 09:26 Dose: 40 mg Calcium Acetate (Phoslo) 1,334 mg PO WM [facility] Last Admin: 12/16/16 08:20 Dose: 1,334 mg Carvedilol (Coreg) 25 mg PO DAILY [facility] Last Admin: 12/15/16 10:52 Dose: 25 mg Clopidogrel Bisulfate (Plavix) 75 mg PO DAILY [facility] Last Admin: 12/16/16 09:26 Dose: 75 mg Home Med (Home Med) 1 unit PO BID [facility] Last Admin: 12/16/16 09:27 Dose: Not Given Hydralazine HCl (Apresoline) 50 mg PO DAILY [facility] Last Admin: 12/15/16 10:51 Dose: 50 mg Piperacillin Sod/Tazobactam Sod (Zosyn 2.25 Gm In 0.9% 100 Ml) 2.25 gm in 100 mls @ 100 mls/hr IVPB Q6 [facility] PRN Reason: Protocol Last Admin: 12/16/16 05:13 Dose: 100 mls/hr Vitamin B Complex/Vit C/Folic Acid (Nephro-Christiano) 1 tab PO DAILY [facility] Last Admin: 12/16/16 09:27 Dose: 1 tab - Labs Labs: 12/16/16 10:30 12/16/16 10:30 PT 12.3 Seconds (9.9-11.8) H 12/13/16 18:50 INR 1.14 (0.93-1.08) H 12/13/16 18:50 APTT 42.0 Seconds (23.7-30.8) H 12/13/16 18:50
--- NOTE | 2016-12-16 15:09 | PN ---
DATE: 12/16/2016 REASON FOR CONSULTATION: Followup cardiac evaluation, history of coronary artery disease, COPD, and renal failure. SUBJECTIVE: The patient denies any chest pain, shortness of breath, or any palpitations. Denies any fever or chills. OBJECTIVE: GENERAL: Lying flat in the bed, not in apparent distress. No chest pain. VITAL SIGNS: Temperature afebrile, heart rate 83, and blood pressure 107/52. HEENT: PERRLA. Extraocular muscles intact. NECK: Supple. No carotid bruits or thyromegaly. CHEST: Clear to auscultation. HEART: S1 and S2 regular. ABDOMEN: Soft. EXTREMITIES: Clubbing and cyanosis negative. LABORATORY DATA: WBC 7.4, hemoglobin 9.1, hematocrit 28.2, and platelet count 157. Chemistry shows sodium 138, potassium 3.9, chloride 101, carbon dioxide 26, anion gap of 15, BUN 27, and creatinine 5.2. Troponin is 0.09, initial troponin is 0.26, subsequent 0.10, 0.09 possibly secondary to renal insufficiency. IMPRESSION: An 81-year-old male with past medical history significant for coronary artery bypass surgery in 1989, history of cardiac catheterization in 12/[address] [facility] [address]. Merchant as I told coronaries are okay. History of end-stage renal disease, on dialysis, hypertension, and hyperlipidemia. Admitted with fever and chills possibly secondary to acute cholecystitis. Denies any chest pain now and asymptomatic. Positive troponin probably secondary to hemodynamic instability as well as secondary to elevated BUN and creatinine, end-stage renal disease. The patient is having gastrointestinal workup for cholecystitis and HIDA scan was negative. RECOMMENDATIONS: The patient's CVS is stable. Continue GI workup. Continue broad-spectrum antibiotic. Continue hydralazine for blood pressure, continue dialysis. We will discontinue telemetry. Continue atorvastatin, continue Coreg, and continue hydralazine. If the patient needs surgical intervention, consider discontinue Plavix and we will follow with you. CVS status is stable. No evidence of ischemia, chest pain, or arrhythmia. I will follow with you. Thank you Dr. Singh for providing the opportunity in taking care of the patient, Jose Arellano. Trinidad Bocanegra MD [facility] # [id number]
--- NOTE | 2016-12-16 15:10 | PN ---
DATE: SUBJECTIVE: Jose Arellano is seen in 268, bed 1. PHYSICAL EXAMINATION: VITAL SIGNS: Normal. LABORATORY DATA: White count was 7.4 yesterday. SMA-18 is relatively normal. Troponin from the was 0.26 and is normal now. The patient had a CAT scan on 12/13/2016 that is reviewed personally showing a thick walled urinary bladder, bilateral adhesions, gall stones, distended gallbladder. The abdomen is soft and nontender. I will follow peripherally without surgical intent. The HIDA scan on 12/15/2016 is normal. I do not think this is acute cholecystitis. Silvano Brady MD
[2016-12-16] MEDS ORDERED: Midazolam 2 MG/2 ML VIAL ONE (15:30)
--- NOTE | 2016-12-16 17:12 | CP.PCM.PN ---
Subjective - Date & Time of Evaluation Date of Evaluation: 12/16/16 Time of Evaluation: 15:00 - Subjective Subjective: Infectious Disease Follow Up: December 16, 2016 81 yo male with recent hospitalization to [facility] for pneumonia and fevers of at least 101.0 F. The patient with complaints of fevers and chills now. States that episodes started shortly after being discharged from the hospital. Fever up 102.7 F on triage in the ER. He was treated with Doxycycline and Meropenem in the hospital for at least a 4 day course. The patient I believe was sent home with Levaquin for treatment. Imaging studies showing a distended gallbladder and cholelithiasis. HIDA negative Gram positive cocci in one blood culture. Afebrile. Micrococcus seen in the blood culture. Objective - Vital Signs/Intake and Output Vital Signs (last 24 hours): Temp Pulse Resp BP Pulse Ox 98.1 F 83 20 117/52 L 100 12/16/16 05:32 12/16/16 05:32 12/16/16 05:32 12/16/16 05:32 12/16/16 05:32 Intake and Output: 12/16/16 12/16/16 06:59 18:59 Intake Total 320 180 Output Total 200 0 Balance 120 180 - Medications Medications: Current Medications Atorvastatin Calcium (Lipitor) 40 mg PO DAILY [facility] Last Admin: 12/16/16 09:26 Dose: 40 mg Calcium Acetate (Phoslo) 1,334 mg PO WM [facility] Last Admin: 12/16/16 16:07 Dose: Not Given Carvedilol (Coreg) 25 mg PO DAILY [facility] Last Admin: 12/15/16 10:52 Dose: 25 mg Clopidogrel Bisulfate (Plavix) 75 mg PO DAILY [facility] Last Admin: 12/16/16 09:26 Dose: 75 mg Home Med (Home Med) 1 unit PO BID [facility] Last Admin: 12/16/16 09:27 Dose: Not Given Hydralazine HCl (Apresoline) 50 mg PO DAILY [facility] Last Admin: 12/15/16 10:51 Dose: 50 mg Piperacillin Sod/Tazobactam Sod (Zosyn 2.25 Gm In 0.9% 100 Ml) 2.25 gm in 100 mls @ 100 mls/hr IVPB Q6 [facility] PRN Reason: Protocol Last Admin: 12/16/16 16:07 Dose: Not Given Vitamin B Complex/Vit C/Folic Acid (Nephro-Christiano) 1 tab PO DAILY [facility] Last Admin: 12/16/16 09:27 Dose: 1 tab - Labs Labs: 12/16/16 10:30 12/16/16 10:30 PT 12.3 Seconds (9.9-11.8) H 12/13/16 18:50 INR 1.14 (0.93-1.08) H 12/13/16 18:50 APTT 42.0 Seconds (23.7-30.8) H 12/13/16 18:50 - Constitutional Appears: Non-toxic, No Acute Distress, Chronically Ill - Head Exam Head Exam: ATRAUMATIC, NORMOCEPHALIC - Eye Exam Eye Exam: EOMI, PERRL - ENT Exam ENT Exam: Mucous Membranes Moist, Normal External Ear Exam, TM's Normal Bilaterally - Neck Exam Neck Exam: Full ROM, Normal Inspection - Respiratory Exam Respiratory Exam: Clear to Ausculation Bilateral, Respiratory Distress. absent : Rales, Rhonchi, Wheezes - Cardiovascular Exam Cardiovascular Exam: REGULAR RHYTHM, RRR, +S1, +S2 - GI/Abdominal Exam GI & Abdominal Exam: Soft, Normal Bowel Sounds. absent: Distended, Tenderness - Extremities Exam Extremities Exam: Full ROM, Normal Inspection - Neurological Exam Neurological Exam: Alert, Awake, CN II-XII Intact, Oriented x3 - Psychiatric Exam Psychiatric exam: Normal Affect, Normal Mood - Skin Skin Exam: Intact, Normal Color Assessment and Plan - Assessment and Plan (Free Text) Assessment: 81 yo male with fevers up to 102.7 F, recent treatment for pneumonia with meropenem and doxycycline discharged on 12/10/2016, and finding of a distended gallbladder and cholelithiasis. Started on Zosyn for antibiotic coverage. On prior hospitalization, no positive cultures. No other recent hospitalizations within the [facility] system. He is an extremely poor historian. Imaging studies showing distended gallbladder. Continuing on Zosyn alone for now. There are still signs of moderate bilateral pleural effusions on the CT scan. HIDA negative. Surgery evaluating at this time. With the positive blood culture with gram positive cocci in one bottle, there are concerns of line infection. FISH is NOT showing Staph Aureus or coagulase negative staph at this time. Awaiting final culture results. Continue on zosyn only for now. Monitor fever trend. Micrococcus in seen in the one blood culture. Can consider use of Ancef 2gm IV with HD (and 3gm on the dose with HD before the 3 day break from HD) to complete therapy of about 10-[address] Prieto earlier today. Thank you for allowing me to participate in the care of the patient, we will follow with you.
[2016-12-16 17:43] VITALS: RESP 18; TEMP 97.8; O2SAT 95
[2016-12-16 17:47] VITALS: BP 136/61
[2016-12-16 18:58] VITALS: PULSE 80
--- NOTE | 2016-12-16 20:23 | VASCULAR ---
PROCEDURE: Ultrasound and fluoroscopic tunneled left IJ dialysis catheter. Removed infected tunneled right IJ dialysis CT CLINICAL HISTORY: ESRD sepsis. Infected right IJ tunnel dialysis catheter PHYSICIAN(S): Yusuf David M.D. TECHNIQUE: The relative risks and indications for the procedure were explained to the patient and informed written consent obtained. The patient was placed supine on the arteriography table and the left neck/chest was prepped and draped in the usual sterile fashion. 1% Xylocaine was used to anesthetize the skin and soft tissues at the puncture site. Conscious sedation and monitoring were provided throughout the procedure by a nurse. Under direct ultrasound guidance, the leftinternal jugular vein was punctured with a micropuncture set. A 0.035 Glidewire was advanced into the IVC. Sequential dilatation was performed with subsequent placement of a 32 cmCannon II catheter with its tip in the right atrium. A retrograde tunnel below the left clavicle was performed. The catheter was trimmed and the hub attached. Both ports aspirate and inject easily. The catheter was secured and a dressing applied. Next the tunneled right IJ dialysis catheter was prepped and draped usual sterile fashion. 1 percent xylocaine was used to anesthetize the insertion site tunnel. A tunnel was bluntly dissected. The catheter was removed and a single interrupted suture placed at the exit site. The patient tolerated the procedure well. IMPRESSION: 1. Ultrasound and fluoroscopically placed left IJ tunneled dialysis catheter. 2. Removal the patient's infected tunneled right IJ dialysis catheter
--- NOTE | 2016-12-16 22:06 | PN ---
The patient is an 81 years old male. SUBJECTIVE: The patient was examined on the bedside, wants to go home. No nausea, vomiting or diarrhea. No hematuria or hematochezia. No swelling of the legs. No chest pain. No palpitations. No headache. No dizziness. No more fevers. Getting IV antibiotics. PHYSICAL EXAMINATION VITAL SIGNS: Temperature 98.1, pulse 83, respiratory rate 20, blood pressure 117/52 and pulse oximetry 100%. HEENT: Head: Normocephalic and atraumatic. Eyes: PERRLA. Extraocular muscles intact. Conjunctivae are clear. Nose is patent. Mucous membrane moist. NECK: Supple. No carotid bruit. No JVD. No thyromegaly. CHEST: Bilaterally symmetrical. HEART: S1, S2 positive. LUNGS: Clear to auscultation. ABDOMEN: Soft. Bowel sounds present. No organomegaly. EXTREMITIES: No edema. No cyanosis. NEUROLOGICAL: The patient is alert. Moving all 4 extremities. No focal deficit. MEDICATIONS: Lipitor, PhosLo, Coreg, Plavix, hydralazine and Zosyn. LABORATORY DATA: White blood cells 7.1, hemoglobin 8.9, hematocrit 28.0 and platelets 169. Sodium 138, potassium 3.8, BUN 32, creatinine 6.2 and glucose 163. ASSESSMENT AND PLAN: The patient is an 81-year-old male with multiple medical problems, sepsis, came with fever of 102.7, pneumonia with meropenem and doxycycline, but discharged on 12/10/2016, came back with distended gallbladder and cholelithiasis, started on Zosyn or antibiotic coverage. Imaging studies showing distended gallbladder, continue Zosyn alone for now. There are still signs of moderate, bilateral pleural effusion on CAT scan, HIDA scan negative. Surgical evaluation done. According to surgery, no surgery. Positive blood culture with gram-positive cocci in one bottle. There are concerns of line infection. Gastrointestinal and deep venous thrombosis prophylaxis. Repeat labs. Can consider use of Ancef as per ID. Renal insufficiency, on dialysis. We will follow up. Karla Singh MD
--- NOTE | 2016-12-16 23:57 | PN ---
PULMONARY PROGRESS NOTE DATE: 12/16/2016 REFERRING PHYSICIAN: Dr. Singh. SUBJECTIVE: He is lying in the bed. His dialysis catheter was removed and new catheter was placed and he feels better. No cough. No sputum production. No nausea, no vomiting, no diarrhea. No leg pain or leg swelling. PHYSICAL EXAMINATION: GENERAL: No acute distress. VITAL SIGNS: Temperature is 98, heart rate is 80, respiratory rate is 18, blood pressure 136/61, pulse ox 95% on room air. HEENT: Moist mucous membrane. No carotid bruit. NECK: Supple. No JVD. LUNGS: Fair airflow with rhonchus. HEART: S1 and S2. ABDOMEN: Soft, nontender. No organomegaly. EXTREMITIES: There is no edema. NEUROLOGIC: Awake and alert. Follow simple command. MEDICATIONS: Reviewed. No new medication reported since yesterday. LABORATORY DATA: Reviewed shows hemoglobin 8.9, hematocrit 28.0, WBC 7.1, platelet is 169. Sodium is 138, potassium 3.8, chloride 101, bicarbonate 26, BUN 32, creatinine 6.5, glucose 163, and calcium 8.0. Phosphorus is 5.1, magnesium 2.0, AST 29, ALT 39, alkaline phosphatase is 91, albumin is 2.8. Microbiology, blood culture was positive for micrococcus species. Repeat blood culture so far is no growth IMPRESSION AND PLAN: Probably Lyme sepsis with bacteremia status post new dialysis catheter, diabetes, hyperlipidemia, cerebrovascular accident, cholelithiasis, and he has sleep apnea syndrome. Antibiotics as per infectious diseases. Keep head elevated 45 degrees. Gastric and DVT prophylaxis. Trinidad Day MD
--- NOTE | 2016-12-17 00:47 | CON ---
DATE: 12/16/2016 CHIEF COMPLAINT: Bladder wall thickening. HISTORY OF PRESENT ILLNESS: An 81-year-old man on chronic hemodialysis. He was admitted with fever and chills, was felt to have his line infected and is currently on IV antibiotics. A CAT scan was done, which was read as some bladder wall thickening, it may be due to underdistention. Urine cultures was no growth. He currently is on the dialysis unit, getting hemodialyzed and that is where I saw him. He does make urine and does voided times. PAST MEDICAL HISTORY: Significant for diabetes, CVA, and renal failure. SOCIAL HISTORY: Does not smoke or drink. FAMILY HISTORY: Noncontributory. ALLERGIES: HE HAS NO ALLERGIES. MEDICATIONS: At home, he is on Lipitor, Plavix, Coreg, PhosLo and hydralazine. REVIEW OF SYSTEMS: Currently, no symptoms referable to the head, eyes, ears, nose, or throat. No cardiorespiratory or GI symptoms. PHYSICAL EXAMINATION: VITAL SIGNS: Shows him to be afebrile, blood pressure 117/52, respirations 20, pulse 83. HEENT: Normocephalic. Sclerae clear. Conjunctivae noninjected. NECK: No CVA pain. ABDOMEN: No hepatosplenomegaly, rebound, or guarding. GENITALIA: Unremarkable. LABORATORY DATA: The patient's lab work shows a white count 7,400. Coags 1.1. His creatinine was 5.2. Yesterday with the BUN of 27. The reason for the consult was a CAT scan, which I reviewed and commented on thickened bladder wall. This may be just due to underdistention. I ordering an urine cytology on the patient. I would not do a cysto on him unless the cytology was suspicious or positive. Patrick Bennett MD
--- NOTE | 2016-12-17 09:39 | DS ---
CHIEF COMPLAINT: Fever. HISTORY OF PRESENT ILLNESS: Mr. Arellano is an 81-year-old male with past medical history of hypertension, hypercholesterolemia, end-stage renal disease on hemodialysis, came with fevers and chills. Denies any chest pain, headache, or shortness of breath. No nausea, vomiting, or diarrhea. The patient was recently discharged from [facility] to [facility], but came back with fever. Shonna, nurse practitioner had discussion with neurologist Dr. Robert Prieto and felt better. Discharged home. PAST MEDICAL HISTORY: CVA, renal failure on hemodialysis, and diabetes mellitus. FAMILY HISTORY: Father and mother noncontributory. HABITS: No smoking, no drug, no ethanol. ALLERGIES: THE PATIENT IS NOT ALLERGIC TO ANY MEDICATION. HOME MEDICATIONS: Reviewed by me. REVIEW OF SYSTEMS: The patient is seen and examined on the bedside, looking comfortable, very happy to go home. As per Dr. Prieto, the patient can get antibiotics during dialysis. No fever. No chills. Sock Examiner also cleared the patient to discharge home. For more details, see my progress note of 12/16/2016. Karla Singh MD
== END 2016-12-16 21:32 | DRG 871 ==
LOC: ED 17:42 → ERH 23:40 → 2RNO 12-14 05:38
PROVIDERS: ADMIT Internal Medicine; ATTEND Internal Medicine
PROC: 02H633Z Insertion of Infusion Device into Right Atrium, Percutaneous Approach (ICD-10-PCS; principal; 2016-12-16)
PROC: 05PY33Z Removal of Infusion Device from Upper Vein, Percutaneous Approach (ICD-10-PCS; 2016-12-16)
PROC: B544ZZA Ultrasonography of Left Jugular Veins, Guidance (ICD-10-PCS; 2016-12-16)
PROC: 5A1D00Z (ICD-10-PCS; 2016-12-16)
DX: A41.9 Sepsis, unspecified organism (principal); N18.6 End stage renal disease; I12.0 Hypertensive chronic kidney disease with stage 5 chronic kidney disease or end stage renal disease; J90 Pleural effusion, not elsewhere classified; E11.22 Type 2 diabetes mellitus with diabetic chronic kidney disease; N25.81 Secondary hyperparathyroidism of renal origin; K80.10 Calculus of gallbladder with chronic cholecystitis without obstruction; E11.65 Type 2 diabetes mellitus with hyperglycemia; E78.00 Pure hypercholesterolemia, unspecified; N30.91 Cystitis, unspecified with hematuria; I25.10 Atherosclerotic heart disease of native coronary artery without angina pectoris; E78.5 Hyperlipidemia, unspecified; N41.9 Inflammatory disease of prostate, unspecified; E83.39 Other disorders of phosphorus metabolism; G47.30 Sleep apnea, unspecified; D64.9 Anemia, unspecified; Z95.5 Presence of coronary angioplasty implant and graft; Z99.2 Dependence on renal dialysis; Z86.73 Personal history of transient ischemic attack (TIA), and cerebral infarction without residual deficits; Z95.1 Presence of aortocoronary bypass graft